=== PATIENT | female | born 1965 | race Caucasian/White ===

== ENCOUNTER 2017-04-13 13:51 | Emergency (ER) | payer BC ==
[~2017-04-13] VITALS: Ht 152.4 cm; Wt 93.5 kg
[~2017-04-13 13:51] MED LIST: DLN/100 PO; LEVO50TA6 PO; OXYC5TAB PO; TRIA37.5 PO
[2017-04-13 14:06] VITALS: TEMP 36.8; Ht 152.4 cm; Wt 93.5 kg
[2017-04-13] MEDS ORDERED: SODIUM CHLORIDE 0.9% 1000ML 1,000 ML IV STA (15:42)
[2017-04-13 15:54] LABS: BASO % 0.4 %; BASO ABS # 0.03 K/uL (0-0.2); COMPLETE YES; EOS % 1.5 %; HEMATOCRIT 40.3 % (37-47); IG% 0.1 %; LYMPH % 26.8 %; LYMPH ABS # 2.28 K/uL (1.2-3.4); MEAN CELL VOLUME 91.6 fL (80-100); MEAN PLATELET VOLUME 9.9 fL (7.4-10.4); MONO % 10.7 %; NEUT % 60.5 %; PLATELET COUNT 326 K/uL (130-400); WHITE BLOOD COUNT 8.52 K/uL (4.8-10.8)
[2017-04-13 16:03] LABS: PREG INTERNAL NEGATIVE QC NEG CLEAR BACKGROUND; PREG INTERNAL POSITIVE QC POS CONTROL LINE
[2017-04-13 16:06] LABS: URINE APPEARANCE CLEAR (CLEAR); URINE BILIRUBIN NEG (NEG); URINE COLOR YELLOW; URINE EPITHELIAL CELL AUTO 20-30 /lpf (0-5); URINE NITRITE NEG (NEG); URINE PH 6.5 (4.5-7.5); URINE SPECIFIC GRAVITY 1.013 (1.000-1.030); UROBILINOGEN NEG (NEG); ZZUR CULT IF INDIC CLEAN CATCH NO
[2017-04-13 16:10] LABS: MANUAL MICROSCOPIC REQUIRED? NO; REVIEW REQ? NO
[2017-04-13 16:12] LABS: ALT/SGPT 26 U/L (12-78); AST/SGOT 16 U/L (15-37); BLOOD UREA NITROGEN 11 mg/dl (7-18); BUN/CREATININE RATIO 15.3 (10-20); CALCIUM 8.7 mg/dl (8.5-10.1); CARBON DIOXIDE 28 mmol/L (21-32); CHLORIDE 100 mmol/L (98-107); CREATININE 0.73 mg/dl (0.60-1.20); GLUCOSE 83 mg/dl (70-99); POTASSIUM 3.2 mmol/L (3.5-5.1); SODIUM 137 mmol/L (136-145)
[2017-04-13 16:15] LABS: ALKALINE PHOSPHATASE 88 U/L (45-117)
--- NOTE | 2017-04-13 18:12 | DIAGNOSTIC IMAGING REPORT ---
Venous Doppler right leg RIGHT VENOUS DOPP LOWER EXT UNILAT CLINICAL HISTORY: LR/QR hip/thigh pain Right TECHNIQUE: Venous Doppler COMPARISON STUDY: None FINDINGS: Normal study IMPRESSION: Normal study Electronically signed by: Mo Antonio M.D. 04/13/2017 6:11 PM Dictated Date/Time: 04/13/2017 6:11 PM
--- NOTE | 2017-04-13 18:13 | DIAGNOSTIC IMAGING REPORT ---
APPENDIX ULTRASOUND HISTORY: Right lower quadrant pain LR/QR hip/thigh pain COMPARISON: None. FINDINGS: Transabdominal scanning of the right lower quadrant was performed. The appendix was not identified. There are no fluid collections or masses within the right lower quadrant. IMPRESSION: The appendix was not identified. Electronically signed by: Mo Antonio M.D. 04/13/2017 6:12 PM Dictated Date/Time: 04/13/2017 6:12 PM
--- NOTE | 2017-04-13 18:18 | DIAGNOSTIC IMAGING REPORT ---
EXAMINATION: PELVIC ULTRASOUND CLINICAL HISTORY: LR/QR hip/thigh pain COMPARISON STUDY: None FINDINGS: The uterus measured 11.2 cm maximum dimension. Several uterine fibroids the largest of which measures 5 cm at the level of the mid uterine body.. The endometrial stripe measured moderately thickened at 1.2 cm.. Probable central canal polyp measuring 1.4 cm. The right ovary measured 2.8 cm maximum dimension. Normal vascular flow. 1.2 cm follicular cyst. The left ovary measured 2.5 cm with a 5.5 cm cyst.. There is no ultrasonographic evidence of ovarian torsion. It should be noted that ovarian torsion can be present with normal Doppler ultrasonographic findings. There was no evidence of pathologic free pelvic fluid. IMPRESSION: 1. . 5.5 cm left ovarian cyst. 2. Moderate thickening of the endometrium at 1.2 cm with a 1.4 cm central canal polyp. 3. Small right ovarian cyst. 4. Fibroid-type uterus. Electronically signed by: Mo Antonio M.D. 04/13/2017 6:17 PM Dictated Date/Time: 04/13/2017 6:13 PM
--- NOTE | 2017-04-13 19:32 | DIAGNOSTIC IMAGING REPORT ---
LUMBAR SPINE 5 VIEWS HISTORY: Pain Eval lumbar DDD COMPARISON: None. FINDINGS: There is no fracture. No subluxation. Moderate degenerative disc change from L3 through S1. IMPRESSION: Moderate degenerative changes low lumbar spine. Electronically signed by: Mo Antonio M.D. 04/13/2017 7:30 PM Dictated Date/Time: 04/13/2017 7:29 PM
--- NOTE | 2017-04-13 19:32 | DIAGNOSTIC IMAGING REPORT ---
RIGHT HIP UNILATERAL 2 VIEWS CLINICAL HISTORY: R hip pain Right pain COMPARISON: None. DISCUSSION: Minimal degenerative narrowing right hip joint space. Minimal calcific trochanteric bursitis. No evidence for acetabular protrusion. There is no evidence for soft tissue swelling. IMPRESSION: Minimal degenerative change. No acute bony abnormality. Electronically signed by: Mo Antonio M.D. 04/13/2017 7:31 PM Dictated Date/Time: 04/13/2017 7:30 PM
[2017-04-13 20:00] VITALS: BP 131/81; PULSE 76; O2SAT 97
--- NOTE | 2017-04-13 20:07 | EMERGENCY ROOM VISIT NOTE ---
History First contact with patient: 14:59 Chief Complaint: GROIN PAIN Stated Complaint: PAIN RT SIDE AND DOWN LEG History of Present Illness The patient is a 51 year old female who presents to the Emergency Room with complaints of right lower abdomen, groin and thigh pain. The patient reports that she started to notice discomfort one week ago. She was doing some spring time maintenance and gardening around her house when she started to notice the discomfort. Over the past 3 days, the pain has significantly worsened. She reports that the pain is worse in the morning, then improves by afternoon. Weightbearing seems to improve the pain. He has had no lower back pain or buttock pain. She does complain of pain radiating down the lateral aspect of the thigh to the knee. She denies any bladder or bowel difficulties. She denies any history of chronic back pain or back injuries. She does have a history of ovarian cyst. She is status post cholecystectomy. The patient reports that the pain has caused some nausea. She denies any fevers or chills at home. She rates her discomfort a 7 out of 10. Last menstruation was approximately one week ago. The patient denies . Review of Systems HEENT: Denies dizziness, visual problems, hearing loss, tinnitus. Denies difficulty swallowing or oral lesions. PULMONARY: Denies cough, shortness of breath, sputum production or hemoptysis. CARDIOVASCULAR: Denies chest pain, palpitations, dyspnea on exertion, orthopnea or peripheral edema. GASTROINTESTINAL: Denies diarrhea, constipation or vomiting. Otherwise see history of present illness. GENITOURINARY: Denies dysuria, frequency, urgency or nocturia. NEUROLOGIC: Denies history of epilepsy, CVA, TIA or chronic headaches. MUSCULOSKELETAL: Denies history of joint tenderness/swelling. SKIN: Denies rashes or lesions. PSYCHIATRIC: Denies history of depression or mental illness. ENDOCRINE: Denies history of diabetes or thyroid disorders. Past Medical/Surgical History Medical Problems: (1) Acute cholecystitis Family History Unremarkable Social History Smoking Status: Never Smoker Drug Use: none Marital Status: Housing Status: lives with family Current/Historical Medications Scheduled Levothyroxine Sodium (Levothyroxine Sodium), 50 MCG PO DAILY Phenytoin Sodium (Dilantin), 100 MG PO BID Triamterene/Hctz (Dyazide 37.5MG/25MG), 1 TAB PO DAILY Allergies Coded Allergies: No Known Allergies (Unverified , 03/27/16) Physical Exam Vital Signs Date Time Temp Pulse Resp B/P (MAP) Pulse Ox O2 Delivery O2 Flow Rate FiO2 04/13/17 20:00 76 18 131/81 97 04/13/17 18:08 81 18 135/89 99 Room Air 04/13/17 15:53 81 16 150/98 97 04/13/17 14:06 36.8 89 18 164/97 100 Room Air Physical Exam CONSTITUTIONAL: Morbidly obese female, alert and oriented X 3 with positive affect. She does not appear in any acute distress. HEENT: Normocephalic, atraumatic. Pupils equal, round and reactive. No scleral icterus or conjunctival injection. NECK: Full active range of motion without discomfort. RESPIRATORY: Clear to auscultation bilaterally with no wheezing, crackles, rhonchi or stridor. CARDIOVASCULAR: Regular rate and rhythm with no murmurs, rubs or gallops. GASTROINTESTINAL: Bowel sounds present in all quadrants. The patient has right lower quadrant tenderness to palpation with negative Rovsing sign. Negative rebound or guarding. MUSCULOSKELETAL: Full range of motion of all joints without discomfort. Patient has worsening discomfort with full internal rotation of the hip. Negative straight leg raise. No focal tenderness to palpation through the lumbar paraspinous muscles, SI joints or sciatic notch. No tenderness to palpation across the lateral thigh. Pedal pulses are intact. INTEGUMENTARY: No rash or other significant dermatologic conditions noted. HEMATOLOGIC: No ecchymosis or petechiae. NEUROLOGIC: No focal neurologic deficits noted. Deep tendon reflexes 2+ and symmetric bilaterally. Medical Decision & Procedures ER Provider Diagnostic Interpretation: Pelvic and transvaginal ultrasound shows a fibroid uterus and bilateral ovarian cysts with a larger left ovarian cyst. There is no evidence for torsion. Additional endometrial thickening is noted. Radiologist report is as follows: EXAMINATION: PELVIC ULTRASOUND CLINICAL HISTORY: LR/QR hip/thigh pain COMPARISON STUDY: None FINDINGS: The uterus measured 11.2 cm maximum dimension. Several uterine fibroids the largest of which measures 5 cm at the level of the mid uterine body.. The endometrial stripe measured moderately thickened at 1.2 cm.. Probable central canal polyp measuring 1.4 cm. The right ovary measured 2.8 cm maximum dimension. Normal vascular flow. 1.2 cm follicular cyst. The left ovary measured 2.5 cm with a 5.5 cm cyst.. There is no ultrasonographic evidence of ovarian torsion. It should be noted that ovarian torsion can be present with normal Doppler ultrasonographic findings. There was no evidence of pathologic free pelvic fluid. IMPRESSION: 1. . 5.5 cm left ovarian cyst. 2. Moderate thickening of the endometrium at 1.2 cm with a 1.4 cm central canal polyp. 3. Small right ovarian cyst. 4. Fibroid-type uterus. Ultrasound of the appendix was unable to identify the appendix. Venous ultrasound of the right lower extremity is negative for deep vein thrombosis. My interpretation of lumbar spine and right hip x-ray shows mild degenerative changes of the hip, and moderate degenerative changes of most of the lumbar spine and L5-S1. Radiologist reports were also reviewed with concurrence. Laboratory Results 04/13/17 15:45 Red Blood Count 4.40, Mean Corpuscular Volume 91.6, Mean Corpuscular Hemoglobin 32.0, Mean Corpuscular Hemoglobin Concent 35.0, Mean Platelet Volume 9.9, Neutrophils (%) (Auto) 60.5, Lymphocytes (%) (Auto) 26.8, Monocytes (%) (Auto) 10.7, Eosinophils (%) (Auto) 1.5, Basophils (%) (Auto) 0.4, Neutrophils # (Auto ) 5.16, Lymphocytes # (Auto) 2.28, Monocytes # (Auto) 0.91, Eosinophils # (Auto ) 0.13, Basophils # (Auto) 0.03 04/13/17 15:45 Test 04/13/17 15:20 04/13/17 15:45 Urine Color YELLOW Urine Appearance CLEAR (CLEAR) Urine pH 6.5 (4.5-7.5) Urine Specific [place] 1.013 (1.000-1.030) Urine Protein NEG (NEG) Urine Glucose (UA) NEG (NEG) Urine Ketones NEG (NEG) Urine Occult Blood NEG (NEG) Urine Nitrite NEG (NEG) Urine Bilirubin NEG (NEG) Urine Urobilinogen NEG (NEG) Urine Leukocyte Esterase TRACE (NEG) Urine WBC (Auto) 1-5 /hpf (0-5) Urine RBC (Auto) 0-4 /hpf (0-4) Urine Hyaline Casts (Auto) 0 /lpf (0-5) Urine Epithelial Cells (Auto) 20-30 /lpf (0-5) Urine Bacteria (Auto) NEG (NEG) Urine Test NEG (NEG) White Blood Count 8.52 K/uL (4.8-10.8) Red Blood Count 4.40 M/uL (4.2-5.4) Hemoglobin 14.1 g/dL (12.0-16.0) Hematocrit 40.3 % (37-47) Mean Corpuscular Volume 91.6 fL (80-100) Mean Corpuscular Hemoglobin 32.0 pg (25-34) Mean Corpuscular Hemoglobin Concent 35.0 g/dl (32-36) Platelet Count 326 K/uL (130-400) Mean Platelet Volume 9.9 fL (7.4-10.4) Neutrophils (%) (Auto) 60.5 % Lymphocytes (%) (Auto) 26.8 % Monocytes (%) (Auto) 10.7 % Eosinophils (%) (Auto) 1.5 % Basophils (%) (Auto) 0.4 % Neutrophils # (Auto) 5.16 K/uL (1.4-6.5) Lymphocytes # (Auto) 2.28 K/uL (1.2-3.4) Monocytes # (Auto) 0.91 K/uL (0.11-0.59) Eosinophils # (Auto) 0.13 K/uL (0-0.5) Basophils # (Auto) 0.03 K/uL (0-0.2) RDW Standard Deviation 40.5 fL (36.4-46.3) RDW Coefficient of Variation 12.0 % (11.5-14.5) Immature Granulocyte % (Auto) 0.1 % Immature Granulocyte # (Auto) 0.01 K/uL (0.00-0.02) Anion Gap 9.0 mmol/L (3-11) Est Creatinine Clear Calc Drug Dose 93.1 ml/min Estimated GFR () 110.5 Estimated GFR (Non- 95.4 BUN/Creatinine Ratio 15.3 (10-20) Calcium Level 8.7 mg/dl (8.5-10.1) Total Bilirubin 0.3 mg/dl (0.2-1) Direct Bilirubin < 0.1 mg/dl (0-0.2) Aspartate Amino Transf (AST/SGOT) 16 U/L (15-37) Alanine Aminotransferase (ALT/SGPT) 26 U/L (12-78) Alkaline Phosphatase 88 U/L (45-117) Total Protein 8.0 gm/dl (6.4-8.2) Albumin 4.1 gm/dl (3.4-5.0) Lipase 137 U/L (73-393) The above labs were reviewed and were grossly normal. Medications Administered Medications (Trade) Dose Ordered Sig/Dada Route Start Time Stop Time Status Last Admin Dose Admin Sodium Chloride 1,000 ml @ 999 mls/hr Q1H1M STAT IV 04/13/17 15:42 04/13/17 16:42 DC 04/13/17 15:51 999 MLS/HR ED Course Patient history and physical exam were performed. Nurse's notes were reviewed. Vital signs were reviewed, showing an elevated blood pressure 164/97. Otherwise remaining vital signs are normal. IV access was established, and labs were drawn. The patient was hydrated with a liter normal saline. She refused any analgesics or antiemetics. Review of labs shows no significant abnormality's. Urinalysis was normal, and urine negative. Appendix ultrasound was unable to identify the appendix. Venous ultrasound of the right lower extremity was negative for deep vein thrombosis. Pelvic and transvaginal ultrasound shows a fibroid uterus, thickened endometrium and left greater than right ovarian cyst. X-rays of the lumbar spine and right hip shows degenerative changes without any acute fractures or other acute findings. The patient was advised of her laboratory and imaging studies. The patient reports that she has an appointment scheduled tomorrow with her family doctor. She was encouraged to alternate ibuprofen and Tylenol as needed for pain. She was welcome to return to the emergency department for any progressively worsening pain, fever or other concerning symptoms. The patient was happy with plan of care, voiced understanding of all discharge instructions, and denied any significant pain at the conclusion of my exam. Medical Decision Differentials considered included acute appendicitis, hernia, bowel obstruction , diverticulitis, musculoskeletal etiology, ileotibial band syndrome, UTI, vaginitis, PID, Bartholin's cyst, lumbar radiculopathy, osteoarthritis and the vein thrombosis. Her workup today is otherwise unremarkable and not suggestive of any specific etiology. I do however suspect that this is musculoskeletal etiology, probably lumbar radiculitis given the distribution of her pain. Impression Primary Impression: Right lower quadrant abdominal pain Additional Impression: Right hip pain Departure Information Referrals Cuauhtemoc Davidson M.D. (PCP) Patient Instructions My [facility] Problem Qualifiers
[2017-07-19] MEDS ORDERED: LEVO75TA PO (10:57)
[2017-08-09] MEDS ORDERED: POTA20TA16 PO (11:57)
== END 2017-04-13 20:01 | disposition home or self-care (01) ==
LOC: C.EDB 13:52 → C.EDC 20:01
DX: R10.31 Right lower quadrant pain (principal); M25.551 Pain in right hip; Z79.899 Other long term (current) drug therapy

== ENCOUNTER → 2017-05-11 | Outpatient (CLI) | payer BC ==
[~2017-05-11] MED LIST changes: +CEFT1INJ57 IV; +LEVO75TA PO; -OXYC5TAB PO; +POTA20TA16 PO
[2017-05-11 12:23] LABS: BASO % 0.5 %; BASO ABS # 0.03 K/uL (0-0.2); COMPLETE YES; EOS % 1.5 %; HEMATOCRIT 39.3 % (37-47); IG% 0.2 %; LYMPH % 35.8 %; LYMPH ABS # 2.13 K/uL (1.2-3.4); MEAN CORPUSCULAR HEMOGLOBIN 32.1 pg (25-34); MEAN CORPUSCULAR HGB CONC 34.1 g/dl (32-36); MEAN PLATELET VOLUME 10.6 fL (7.4-10.4); MONO % 10.6 %; NEUT % 51.4 %; PLATELET COUNT 304 K/uL (130-400); RED BLOOD COUNT 4.18 M/uL (4.2-5.4); WHITE BLOOD COUNT 5.95 K/uL (4.8-10.8)
[2017-05-11 12:51] LABS: ALT/SGPT 30 U/L (12-78); BLOOD UREA NITROGEN 9 mg/dl (7-18); BUN/CREATININE RATIO 12.7 (10-20); CALCIUM 8.8 mg/dl (8.5-10.1); CARBON DIOXIDE 26 mmol/L (21-32); CHLORIDE 103 mmol/L (98-107); CHOLESTEROL 212 mg/dl (0-200); CREATININE 0.74 mg/dl (0.60-1.20); GLUCOSE 84 mg/dl (70-99); POTASSIUM 3.6 mmol/L (3.5-5.1); SODIUM 136 mmol/L (136-145)
[2017-05-11 13:00] LABS: ALKALINE PHOSPHATASE 76 U/L (45-117); AST/SGOT 23 U/L (15-37); CHOLESTEROL/HDL RATIO 4.5; HDL CHOLESTEROL 47 mg/dl; LDL CHOLESTEROL CALCULATED 132 mg/dl; TRIGLYCERIDES 167 mg/dl (0-150); VERY LOW DENSITY LIPOPROT CALC 33 mg/dl
== END | disposition home or self-care (01) ==
LOC: C.LABBFT 10:12
PROVIDERS: ATTEND Physician Assistant Medical
DX: G40.909 Epilepsy, unspecified, not intractable, without status epilepticus (principal)

== ENCOUNTER → 2017-05-18 | Outpatient (CLI) | payer BC ==
--- NOTE | 2017-05-18 09:46 | DIAGNOSTIC IMAGING REPORT ---
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 The left lobe measures 50 x 20 x 24 mm. Both lobes are heterogeneous in echotexture. There is a 4 mm cystic nodule within the isthmus. There is a 10 x 9 x 8 mm nodule abutting or arising from the lower pole the left lobe of the thyroid. This is isoechoic to thyroid tissue. This remains essentially unchanged from the preceding study. IMPRESSION: 1. No significant change from the preceding 2012 and 2008 study 2. Stable thyroid gland heterogeneity 3. Stable 4 mm cystic nodule within the isthmus 4. Stable 1 cm nodule arising from or adjacent to the lower pole the left lobe of the thyroid Electronically signed by: Savage Bob M.D. 05/18/2017 9:45 AM Dictated Date/Time: 05/18/2017 9:41 AM
== END | disposition home or self-care (01) ==
LOC: C.ULTR 08:47
PROVIDERS: ATTEND Internal Medicine
DX: E04.1 Nontoxic single thyroid nodule (principal)

== ENCOUNTER → 2017-07-31 | Outpatient (CLI) | payer BC ==
[~2017-07-31] MED LIST changes: -LEVO50TA6 PO
[2017-07-31 18:05] LABS: THYROID STIMULATING HORMONE 2.4 uIu/ml (0.300-4.500)
== END | disposition home or self-care (01) ==
LOC: C.LAB1850 17:03
PROVIDERS: ATTEND Obstetrics & Gynecology
DX: Z01.818 Encounter for other preprocedural examination (principal); E03.9 Hypothyroidism, unspecified

== ENCOUNTER → 2017-08-07 | Outpatient (CLI) | payer BC ==
[~2017-08-07] MED LIST changes: -CEFT1INJ57 IV
[2017-08-07 17:08] LABS: BLOOD UREA NITROGEN 8 mg/dl (7-18); BUN/CREATININE RATIO 11.1 (10-20); CALCIUM 9.1 mg/dl (8.5-10.1); CARBON DIOXIDE 28 mmol/L (21-32); CHLORIDE 101 mmol/L (98-107); CREATININE 0.76 mg/dl (0.60-1.20); GLUCOSE 107 mg/dl (70-99); POTASSIUM 3.1 mmol/L (3.5-5.1); SODIUM 136 mmol/L (136-145)
== END | disposition home or self-care (01) ==
LOC: C.LAB1850 15:35
PROVIDERS: ATTEND Physician Assistant Medical
DX: E87.6 Hypokalemia (principal)

== ENCOUNTER → 2017-08-08 | Outpatient (CLI) | payer BC ==
--- NOTE | 2017-08-09 08:12 | MAMMOGRAPHY REPORT ---
BILATERAL DIGITAL SCREENING MAMMOGRAM TOMOSYNTHESIS WITH CAD: 08/08/2017 CLINICAL HISTORY: Routine screening. Patient has no complaints. TECHNIQUE: Breast tomosynthesis in addition to standard 2D mammography was performed. Current study was also evaluated with a Computer Aided Detection (CAD) system. COMPARISON: Comparison is made to exams dated: 08/03/2016 mammogram, 04/28/2015 mammogram, 02/05/2014 ma mmogram, 10/20/2010 ultrasound, 10/20/2010 mammogram, and 10/06/2010 mammogram - [facility]. BREAST COMPOSITION: There are scattered areas of fibroglandular density in both breasts. FINDINGS: No suspicious mass, architectural distortion or cluster of microcalcifications is seen. IMPRESSION: ACR BI-RADS CATEGORY 1: NEGATIVE There is no mammographic evidence of malignancy. A 1 year screening mammogram is recommended. The pa tient will receive written notification of the results. Approximately 10% of breast cancers are not detected with mammography. A negative mammographic report should not delay biopsy if a clinically suggestive mass is present. Caridad huff/kody:08/08/2017 18:18:04 Cleaning Custodian: Mery Mello RT(R)(M), [facility] letter sent: Normal 1/2 BI-RADS Code: ACR BI-RADS Category 1: Negative
== END | disposition home or self-care (01) ==
LOC: C.MAMM 07:43
PROVIDERS: ATTEND Internal Medicine
DX: Z12.31 Encounter for screening mammogram for malignant neoplasm of breast (principal)

== ENCOUNTER → 2017-08-09 | Day surgery (SDC) | payer BC ==
[2017-07-19 10:58] VITALS: Ht 152.4 cm; Wt 93.2 kg
--- NOTE | 2017-08-04 08:19 | HISTORY & PHYSICAL EXAMINATION ---
DATE OF ADMISSION: 08/09/2017 The patient is for surgery on 08/09/2017. CHIEF COMPLAINT: Endometrial mass and menorrhagia. HISTORY OF PRESENT ILLNESS: The patient is a 51-year-old white female 2, para 2 who has been experiencing heavy menstrual bleeding for many months. Ultrasound and hysterosonogram the fall revealed evidence of an endometrial mass. The patient is now for hysteroscopy, D&C. Due to her heavy bleeding she also wishes to undergo endometrial ablation. She is status post tubal. Her last Pap smear was 07/29/2016 and this was negative. PAST MEDICAL HISTORY: ALLERGIES: The patient reports no known allergies. MEDICATIONS: She takes levothyroxine 75 mcg daily, Dilantin 100 mg 1 capsule b.i.d. and triamterene/hydrochlorothiazide 37.5/25 mg once daily. In addition, she is using hydrocortisone rectal suppositories for hemorrhoids. ILLNESSES: Hypertension. She is hypothyroid. She has a seizure disorder. Also noted to have ovarian cysts on her last pelvic ultrasound. The patient has had heartburn. PAST SURGICAL HISTORY: The patient is status post laparoscopic cholecystectomy. In addition, she has had a tubal ligation. She has also undergone thyroid biopsy which was negative. FAMILY HISTORY: There is a history of hypertension, diabetes, and heart disease in her mother. Her mother also suffered from a stroke. Her father has history of alcoholic cirrhosis. SOCIAL HISTORY: The patient drinks approximately 1 drink per week. She is not a current cigarette smoker but has smoked in the past. She is . PHYSICAL EXAMINATION: VITAL SIGNS: Height 5 feet, weight 206 pounds, blood pressure 128/86. HEAD, EYES, EARS, NOSE, AND THROAT: Grossly within normal limits. NECK: Supple without masses. CHEST: Her lungs are clear without wheezing. HEART: Regular rate and rhythm. No murmurs, gallops or rubs. BREASTS: Nontender with no masses palpable and no lymphadenopathy. ABDOMEN: Obese, soft and nontender. No masses palpable. PELVIC EXAMINATION: External genitalia are normal. Vagina is pink and stimulated. Cervix pink and closed with no lesions visible. Uterus is top normal size. Adnexa nontender with no masses palpable. Rectovaginal exam negative. EXTREMITIES: No cyanosis, clubbing or edema. IMPRESSION: A 51-year-old white female 2, para 2 with menorrhagia and an endometrial mass by ultrasound. PLAN: The patient is for hysteroscopy, dilation of the cervix and curettage with possible removal of polyp/lesion as well as hysteroscopic guided endometrial ablation by roller ball or NovaSure method with or without dilation and curettage, with or without removal of endometrial polyp/lesion. The patient is aware of the risks of bleeding, infection, perforation of the uterus, damage to internal organs and possible need for further treatment. The patient wishes to proceed with the surgery. YARITZA
[~2017-08-09] VITALS: Ht 152.4 cm; Wt 93.2 kg
[~2017-08-09] MED LIST changes: +ATROPINE SULFATE 0.1 MG/ML 5ML SYR IV PRN; +CEFT1INJ57 IV; +DEXAMETHASONE SOD INJ 4 MG/ML VIAL ONE; +EpHEDrine SULFATE INJ 50 MG/ML AMP IV PRN; +FENTANYL CITRATE INJ 50 MCG/1 ML 2 ML VIAL IV PRN; +FENTANYL CITRATE INJ 50 MCG/1 ML 2 ML VIAL ONE; +FLUMAZENIL 0.1 MG/1 ML 10 ML VIAL IV PRN; +HYDROmorphone INJ 2 MG/ML SYR/VIAL IV PRN; +IBUPROFEN 200 MG TAB ONE; +IBUPROFEN 600 MG TAB PO PRN; +KETOROLAC TROMETHAMINE 30 MG/ML VIAL ONE; +LABETALOL HCL IV 5 MG/ML 20ML IV PRN; +LACTATED RINGER'S 1000ML 1,000 ML IV SCH; +LIDOCAINE HCL 2% 2 ML VIAL (20MG/ML) ONE; +MEPERIDINE HCL 25 MG/ML CARP IV PRN; +MIDAZOLAM HCL 1 MG/ML 2ML VIAL ONE; +NALOXONE HCL 0.4 MG/1 ML VIAL/CARP IV PRN; +ONDANSETRON INJ 2 MG/ML 2 ML VIAL IV PRN; +ONDANSETRON INJ 2 MG/ML 2 ML VIAL ONE; +PHENYLEPHRINE 100MCG/ML 5ML SYR IV PRN; +PROPOFOL IV EMULSION 10 MG/ML 20 ML VIAL IV ONE; +SODIUM CHLORIDE 0.9% 1000ML 1,000 ML IV SCH
--- NOTE | 2017-08-09 15:10 | History & Physical Bridge - SC ---
H&P Re-Evaluation Bridge Note: I have examined the patient, reviewed the History & Physical and in the interval since the performance of the History & Physical I have noted the following changes of clinical significance: No changes noted
--- NOTE | 2017-08-09 15:11 | [facility] Post Operative Brief Note ---
Immediate Operative Summary Operative Date Aug 09, 2017. Pre-Operative Diagnosis Endometrial Mass Post-Operative Diagnosis Same with cervical polyps. Pathology pending. Procedure(s) Performed Dilatation And Curettage, Hysteroscopy, Polypectomy, Novasure Endometrial Ablation Surgeon Dr. Demetrice Staley Windows Security Analyst Surgeon(s) 0 Estimated Blood Loss 10cc Findings See dictated note. Specimens A. Endocervical Curettings and Cervical Polyp B. Endometrial Curettings and Polyp Complication(s) None Disposition Recovery Room / PACU
--- NOTE | 2017-08-09 15:16 | Discharge Instructions-SurgCtr ---
Discharge Instructions Date of Service Aug 09, 2017. Visit Reason for Visit: Endometrial Mass, menorrhagia Discharge Discharge Diagnosis / Problem: S/P Hysteroscopy, D&C, polypectomy and Novasure endometrial ablation Discharge Goals Goal(s): Diagnostic testing, Therapeutic intervention Activity Recommendations Activity Limitations: per Instructions/Follow-up section Anesthesia . Post Anesthesia Instructions: If you have had General Anesthesia or IV Sedation: * Do not drive today. * Resume driving when surgeon permits. * Do not make important decisions or sign legal documents today. * Call surgeon for: 1. Temperature elevations greater than 101 degrees F. 2. Uncontrollable pain. 3. Excessive bleeding. 4. Persistent nausea and vomiting. 5. Medication intolerance (nausea, vomiting or rash). * For nausea and vomiting use only clear liquids such as: tea, soda, bouillon until nausea subsides, then gradually increase diet as tolerated. * If you have any concerns or questions, call your surgeon's office. If physician is unavailable and it is an emergency, call 911 or go to the nearest emergency room. . Instructions / Follow-Up Instructions / Follow-Up ACTIVITY RECOMMENDATIONS: * Avoid tampons, douching, hot tubs, pools, and intercourse until bleeding has stopped. * May shower as usual. * No strenuous activity for 24-48 hours. After 24-48 hours, you may do anything you feel like doing (driving and sports are okay). SPECIAL CARE INSTRUCTIONS: Special Diet: * Mild nausea may occur in the immediate post-operative period. * Take clear liquids such as tea, cola or bouillon until all nausea has subsided; you may then resume your normal diet. Special Care: * Light bleeding and vaginal spotting can last from a few days to 3-4 weeks. Call your doctor if bleeding becomes heavier than the heaviest part of your period. * Check your temperature twice a day for one week. If it goes above 100.4 degrees Fahrenheit (38.0 Celsius), notify your doctor. Call if you have persistent severe cramping or foul vaginal discharge. * Call your doctor's office for an appointment for 3-4 weeks after your surgery. [phone] FOLLOW-UP VISIT: Call your doctor's office for an appointment for 3-4 weeks after your surgery. Diet Recommendations Home Diet: resume previous diet Procedures Procedures Performed: Dilatation And Curettage, Hysteroscopy, Polypectomy, Novasure Endometrial Ablation Pending Studies Studies pending at discharge: yes List of pending studies: The sonography technologist office will call you with the pathology report. Medical Emergencies . Who to Call and When: Medical Emergencies: If at any time you feel your situation is an emergency, please call 911 immediately. . Non-Emergent Contact Non-Emergency issues call your: Hot Tar Roofer Helper Call Non-Emergent contact if: temperature is above 100.5, your pain is worsening . . "Provider Documentation" section prepared by Mamta Staley. .
[2017-08-09 15:43] VITALS: TEMP 36.4
--- NOTE | 2017-08-09 15:43 | OPERATIVE REPORT ---
DATE OF OPERATION: 08/09/2017 PREOPERATIVE DIAGNOSES: Endometrial mass and menorrhagia. POSTOPERATIVE DIAGNOSES: Same with pathology pending. PROCEDURES: Hysteroscopy, D&C, polypectomy and NovaSure endometrial ablation. SURGEON: Dr. Mamta Staley. ANESTHESIA: General. STATION CHIEF: Dr. Lui. DESCRIPTION OF PROCEDURE: The patient was taken to the operating room, where general anesthesia was administered. After an adequate level was obtained, she was placed in dorsal lithotomy position. Vulva, vagina, and cervix were prepped with Betadine solution. The patient was draped. Bladder was drained with a straight catheter. Weighted speculum was placed in the posterior fornix of the vagina. The anterior lip of the cervix was grasped with an Allis clamp. There were 2 small polypoid appearing lesions right at the cervical os. These were removed with an Allis clamp and sent with the endocervical curettings. Endocervical curettings were obtained with a small rectangular curette. The uterus was then sounded to 9.5 cm. The cervix was easily dilated up to a #25. Hysteroscope was introduced into the endometrial cavity and photographs taken. There were several polypoid growths noted. The hysteroscope was removed and polyp forceps used to remove a moderate amount of tissue. Curettage was then carried out with a serrated curet and good uterine cry was obtained in all 4 quadrants. The hysteroscope was used to examine the endometrial cavity and at this point, it appeared clear of any further polypoid tissue. The endometrial cavity was estimated to be 4.5 cm in depth. The NovaSure instrument was introduced into the endometrial cavity. The depth was set at 4.5 cm. The endometrial cavity width was 4.7 cm. The CO2 test was performed and this was passed. The NovaSure was activated and active for 1 minute 13 seconds. The NovaSure instrument was then removed. Hysteroscope was used once more to visualize the endometrial cavity and good pili was noted. The patient tolerated the procedure well and was taken to the recovery room in good condition. I attest to the content of the Intraoperative Record and any orders documented therein. Any exceptions are noted below. MTDD
--- NOTE | 2017-08-09 15:46 | Anesthesia Progress Nt - [facility] ---
Anesthesia Post Op Note Date & Time Aug 09, 2017 at 15:46 Vital Signs Pain Intensity: 0 Vital Signs Past 12 Hours Date Time Temp Pulse Resp B/P (MAP) Pulse Ox O2 Delivery O2 Flow Rate FiO2 08/09/17 15:41 134/90 08/09/17 15:40 36.5 95 Room Air 08/09/17 15:37 72 14 08/09/17 15:37 74 14 95 08/09/17 15:36 131/92 08/09/17 15:32 68 12 08/09/17 15:32 67 12 95 08/09/17 15:31 137/81 08/09/17 15:30 64 17 08/09/17 15:30 66 17 99 08/09/17 15:26 134/85 08/09/17 15:25 72 17 98 08/09/17 15:25 72 17 08/09/17 15:24 79 15 98 08/09/17 15:24 78 15 08/09/17 15:21 133/88 08/09/17 15:19 78 08/09/17 15:19 78 142/86 98 08/09/17 15:19 36.3 80 16 142/86 98 Mask 6 08/09/17 12:02 36.7 83 16 124/84 (97) 98 Room Air Notes Mental Status: alert / awake / arousable, participated in evaluation Pt Amnestic to Procedure: Yes Nausea / Vomiting: adequately controlled Pain: adequately controlled Airway Patency, RR, SpO2: stable & adequate BP & HR: stable & adequate Hydration State: stable & adequate Anesthetic Complications: no major complications apparent
[2017-08-09 16:06] VITALS: BP 130/82; PULSE 71; O2SAT 98
== END | disposition home or self-care (01) ==
LOC: X.SURG 11:36
PROVIDERS: ATTEND Obstetrics & Gynecology
DX: N92.0 Excessive and frequent menstruation with regular cycle (principal); N84.0 Polyp of corpus uteri; I10 Essential (primary) hypertension; E03.9 Hypothyroidism, unspecified; G40.909 Epilepsy, unspecified, not intractable, without status epilepticus; Z82.49 Family history of ischemic heart disease and other diseases of the circulatory system; E66.9 Obesity, unspecified; Z83.3 Family history of diabetes mellitus; Z82.3 Family history of stroke; Z81.1 Family history of alcohol abuse and dependence; Z87.891 Personal history of nicotine dependence; Z86.69 Personal history of other diseases of the nervous system and sense organs; Z90.49 Acquired absence of other specified parts of digestive tract; Z98.51 Tubal ligation status

== ENCOUNTER 2017-08-11 22:13 | Inpatient (IN) | payer BC ==
[~2017-08-11] VITALS: Ht 152.4 cm; Wt 92.4 kg
[~2017-08-11 22:13] MED LIST changes: -ATROPINE SULFATE 0.1 MG/ML 5ML SYR IV PRN; -CEFT1INJ57 IV; -DEXAMETHASONE SOD INJ 4 MG/ML VIAL ONE; -EpHEDrine SULFATE INJ 50 MG/ML AMP IV PRN; -FENTANYL CITRATE INJ 50 MCG/1 ML 2 ML VIAL IV PRN; -FENTANYL CITRATE INJ 50 MCG/1 ML 2 ML VIAL ONE; -FLUMAZENIL 0.1 MG/1 ML 10 ML VIAL IV PRN; -HYDROmorphone INJ 2 MG/ML SYR/VIAL IV PRN; -IBUPROFEN 200 MG TAB ONE; -IBUPROFEN 600 MG TAB PO PRN; -KETOROLAC TROMETHAMINE 30 MG/ML VIAL ONE; -LABETALOL HCL IV 5 MG/ML 20ML IV PRN; -LACTATED RINGER'S 1000ML 1,000 ML IV SCH; -LIDOCAINE HCL 2% 2 ML VIAL (20MG/ML) ONE; -MEPERIDINE HCL 25 MG/ML CARP IV PRN; -MIDAZOLAM HCL 1 MG/ML 2ML VIAL ONE; -NALOXONE HCL 0.4 MG/1 ML VIAL/CARP IV PRN; -ONDANSETRON INJ 2 MG/ML 2 ML VIAL IV PRN; -ONDANSETRON INJ 2 MG/ML 2 ML VIAL ONE; -PHENYLEPHRINE 100MCG/ML 5ML SYR IV PRN; -POTA20TA16 PO; -PROPOFOL IV EMULSION 10 MG/ML 20 ML VIAL IV ONE; -SODIUM CHLORIDE 0.9% 1000ML 1,000 ML IV SCH
[2017-08-11] MEDS ORDERED: ONDANSETRON INJ 2 MG/ML 2 ML VIAL IV STA (23:17)
[2017-08-11] MEDS ORDERED: KETOROLAC TROMETHAMINE 30 MG/ML VIAL IV STA (23:17)
[2017-08-11] MEDS ORDERED: SODIUM CHLORIDE 0.9% 1000ML 1,000 ML, SODIUM CHLORIDE 0.9% 1000ML 1,000 ML IV ONE (23:30)
[2017-08-11] MEDS ORDERED: ACETAMINOPHEN IV 100 ML IV ONE (23:30)
[2017-08-12 00:18] LABS: BASO % 0.2 %; BASO ABS # 0.01 K/uL (0-0.2); COMPLETE YES; HEMATOCRIT 34.4 % (37-47); IG% 0.2 %; LYMPH % 4.8 %; LYMPH ABS # 0.28 K/uL (1.2-3.4); MEAN CELL VOLUME 93.5 fL (80-100); MEAN CORPUSCULAR HEMOGLOBIN 32.3 pg (25-34); MEAN CORPUSCULAR HGB CONC 34.6 g/dl (32-36); MEAN PLATELET VOLUME 9.7 fL (7.4-10.4); MONO % 0.7 %; NEUT % 94.1 %; PLATELET COUNT 199 K/uL (130-400); RED BLOOD COUNT 3.68 M/uL (4.2-5.4)
[2017-08-12 00:30] LABS: URINE APPEARANCE CLEAR (CLEAR); URINE BILIRUBIN NEG (NEG); URINE COLOR YELLOW; URINE EPITHELIAL CELL AUTO >30 /lpf (0-5); URINE NITRITE NEG (NEG); URINE PH 7.5 (4.5-7.5); URINE SPECIFIC GRAVITY 1.019 (1.000-1.030); UROBILINOGEN NEG (NEG); ZZUR CULT IF INDIC CLEAN CATCH NO
[2017-08-12] MEDS ORDERED: PIPERACILLIN/TAZOBACTAM 4.5 GM/100ML D5W IV STA (00:34)
[2017-08-12 00:39] LABS: BUN/CREATININE RATIO 11.2 (10-20); CALCIUM 8.5 mg/dl (8.5-10.1); MAGNESIUM 1.7 mg/dl (1.8-2.4); POTASSIUM 3.4 mmol/L (3.5-5.1)
[2017-08-12 00:40] LABS: MANUAL MICROSCOPIC REQUIRED? NO; REVIEW REQ? NO
[2017-08-12] MEDS ORDERED: OPTIRAY 320 IV PRN (00:45)
[2017-08-12] MEDS ORDERED: SODIUM CHLORIDE 0.9% 1000ML 1,000 ML IV ONE (03:00)
[2017-08-12] MEDS ORDERED: VANCOMYCIN INJ 1,000 MG in SODIUM CHLORIDE 0.9% 250ML 250 ML IV STA (03:15)
[2017-08-12] MEDS ORDERED: VANCOMYCIN 1GM/270ML NSS ONE (03:37)
--- NOTE | 2017-08-12 03:44 | History and Physical ---
History & Physical Date & Time of Service: Aug 12, 2017 at 03:43 Chief Complaint: Surgery 08-09,Fever,Chills,Vomiting,Hot/Sweating Primary Care Physician: Cuauhtemoc Davidson M.D. History of Present Illness Source: patient Mrs Baez is a 51 year old female who presents to the ER with fever and chills. She underwent surgery on Past Medical/Surgical History Hypothyroidism Seizure disorder Family History Noncontributory Social History Smoking Status: Never Smoker Smokeless Tobacco Use: No Alcohol Use: none Drug Use: none Marital Status: Housing status: lives with family Occupational Status: retired Immunizations History of Influenza Vaccine: Unknown History of Tetanus Vaccine?: Unknown History of Pneumococcal: Unknown History of Hepatitis B Vaccine: Unknown Multi-Drug Resistant Organisms History of MDRO: No Allergies Coded Allergies: No Known Allergies (Unverified , 08/11/17) Home Medications Scheduled Levothyroxine Sodium (Synthroid), 75 MCG PO QAM Phenytoin Sodium (Dilantin), 100 MG PO BID Triamterene/Hctz (Dyazide 37.5MG/25MG), 1 TAB PO QAM Review of Systems Constitutional: + fever, + chills, + fatigue (generalized) Eyes: No worsening of vision ENT: No hearing loss Respiratory: + cough (just started in the ER), No sputum, No wheezing, No shortness of breath, No dyspnea on exertion, No dyspnea at rest, No hemoptysis Physical Exam Vital Signs Date Time Temp Pulse Resp B/P (MAP) Pulse Ox O2 Delivery O2 Flow Rate FiO2 08/12/17 03:06 37.4 08/12/17 01:49 37.9 111 16 112/53 Room Air 08/12/17 00:39 39.5 08/11/17 22:16 37.3 117 18 134/81 95 Room Air General Appearance: WD/WN, + mild distress (appears hot and sweating) Head: normocephalic, atraumatic Eyes: normal inspection, PERRL, EOMI ENT: + pertinent finding (no meningismus) Neck: supple, no JVD Respiratory/Chest: chest non-tender, lungs clear, normal breath sounds, no respiratory distress, no accessory muscle use Cardiovascular: normal peripheral pulses, + tachycardia (regular rhythm) Abdomen/GI: normal bowel sounds, non tender, soft Extremities/Musculoskelatal: no calf tenderness, normal capillary refill, no pedal edema Neurologic/Psych: media sales executive II-XII nml as tested, no motor/sensory deficits, alert, oriented x 3 Skin: normal color, warm/dry, no rash Diagnostics Laboratory Results Results Past 24 Hours Test 08/11/17 23:17 08/12/17 00:06 08/12/17 00:15 Range/Units Urine Color YELLOW Urine Appearance CLEAR CLEAR Urine pH 7.5 4.5-7.5 Urine Specific [place] 1.019 1.000-1.030 Urine Protein NEG NEG Urine Glucose (UA) NEG NEG Urine Ketones NEG NEG Urine Occult Blood TRACE NEG Urine Nitrite NEG NEG Urine Bilirubin NEG NEG Urine Urobilinogen NEG NEG Urine Leukocyte Esterase TRACE NEG Urine WBC (Auto) 1-5 0-5 /hpf Urine RBC (Auto) 5-10 0-4 /hpf Urine Hyaline Casts (Auto) 1-5 0-5 /lpf Urine Epithelial Cells (Auto) >30 0-5 /lpf Urine Bacteria (Auto) NEG NEG White Blood Count 5.80 4.8-10.8 K/uL Red Blood Count 3.68 4.2-5.4 M/uL Hemoglobin 11.9 12.0-16.0 g/dL Hematocrit 34.4 37-47 % Mean Corpuscular Volume 93.5 80-100 fL Mean Corpuscular Hemoglobin 32.3 25-34 pg Mean Corpuscular Hemoglobin Concent 34.6 32-36 g/dl Platelet Count 199 130-400 K/uL Mean Platelet Volume 9.7 7.4-10.4 fL Neutrophils (%) (Auto) 94.1 % Lymphocytes (%) (Auto) 4.8 % Monocytes (%) (Auto) 0.7 % Eosinophils (%) (Auto) 0.0 % Basophils (%) (Auto) 0.2 % Neutrophils # (Auto) 5.46 1.4-6.5 K/uL Lymphocytes # (Auto) 0.28 1.2-3.4 K/uL Monocytes # (Auto) 0.04 0.11-0.59 K/uL Eosinophils # (Auto) 0.00 0-0.5 K/uL Basophils # (Auto) 0.01 0-0.2 K/uL RDW Standard Deviation 42.0 36.4-46.3 fL RDW Coefficient of Variation 12.3 11.5-14.5 % Immature Granulocyte % (Auto) 0.2 % Immature Granulocyte # (Auto) 0.01 0.00-0.02 K/uL Sodium Level 135 136-145 mmol/L Potassium Level 3.4 3.5-5.1 mmol/L Chloride Level 99 98-107 mmol/L Carbon Dioxide Level 26 21-32 mmol/L Anion Gap 10.0 3-11 mmol/L Blood Urea Nitrogen 11 7-18 mg/dl Creatinine 1.00 0.60-1.20 mg/dl Est Creatinine Clear Calc Drug Dose 67.5 ml/min Estimated GFR () 75.5 Estimated GFR (Non- 65.2 BUN/Creatinine Ratio 11.2 10-20 Random Glucose 119 70-99 mg/dl Calcium Level 8.5 8.5-10.1 mg/dl Magnesium Level 1.7 1.8-2.4 mg/dl Total Bilirubin 0.4 0.2-1 mg/dl Aspartate Amino Transf (AST/SGOT) 20 15-37 U/L Alanine Aminotransferase (ALT/SGPT) 26 12-78 U/L Alkaline Phosphatase 86 45-117 U/L Total Protein 7.3 6.4-8.2 gm/dl Albumin 3.7 3.4-5.0 gm/dl Globulin 3.6 2.5-4.0 gm/dl Albumin/Globulin Ratio 1.0 0.9-2 Lipase 117 73-393 U/L Bedside Lactic Acid Venous 3.04 0.90-1.70 mmol/L Microbiology Results 08/12/17 Blood Culture, Received Pending 08/12/17 Blood Culture, Received Pending Diagnostic Radiology CT Abdomen/Pelvis with Contrast: Visualized lower thorax is unremarkable. Gallbladder is surgical absent. Calcified granulomata within the spleen. Liver, pancreas and adrenal glands are unremarkable. Kidneys, ureters and urinary bladder are unremarkable. Myomatous uteris. Right ovarian cyst measuring up to 6.6cm. Appendix is unremarkable. Stomach, small bowel and colon are all unremarkable. No acute osseus abnormality. Impression Assessment and Plan Mrs He is a 51 year old female who presents to the ER with fever and chills 2 days post op from D&C and ablation. Fever - unclear etiology but given history suspicion has to be highest for endometritis - blood culture pending - influenza swab added - treat with broad spectrum antibiotics, Zosyn + vancomycin - consult AGRICULTURAL EQUIPMENT MECHANIC Hypothyroidism - Continue levothyroxine Seizure disorder - continue phenytoin Attending Addendum: I have physically seen and examined this patient, have directed the resident's medical activities, and agree with the H&P as noted above with the following exceptions as noted. The patient is awake, alert and oriented 3, well-developed and well-nourished , normocephalic and atraumatic, lying in bed and in mild distress. HEENT--PERRL, EOMI, mucous membranes and oropharynx dry. Neck--supple, no JVD or bruits, thyroid normal, trachea midline, no adenopathy. Heart--normal S1 and S2, no extra beats, no murmurs, rubs or gallops. Lungs--clear bilaterally with good air movement, no respiratory distress, no accessory muscle use. Abdomen--normal bowel sounds and soft, tender over suprapubic and pelvic area bilaterally. Extremities--no cyanosis, clubbing or edema. There are good distal pulses b/l. Dermatologic--normal skin turgor, normal color, warm and dry, no abnormal lymph nodes, no rash. Neurologic--cranial nerves II through XII grossly intact. Rheumatologic--normal range of motion, nontender, muscles and joints. Psychiatric--normal affect. Assessment and Plan: Febrile illness/status post D&C with ablation 2 days previously-- Follow blood and urine cultures. Influenza swab. Place on vancomycin IV and Zosyn IV. NSS with KCl 20 mEq at 100 mils per hour. Consult AGRICULTURAL EQUIPMENT MECHANIC. Hypertension-- Hold triamterene/HCTZ 37.5/25 daily. Hypothyroidism-- Continue levothyroxine sodium 75 g by mouth every morning. Seizure disorder-- Continue Dilantin 100 mg by mouth twice a day. Level of Care Med/Surg Advanced Directives Existing Advance Directive: No Existing Living Will: No Existing Power of Image Processing Engineer: No Resuscitation Status FULL RESUSCITATION VTE Prophylaxis VTE Risk Assessment Done? Y/N: Yes Risk Level: Low Given or contraindicated: Treatment not indicated (young age and mobile, expect quick turn around) Social Service Consult None Apply Resident Tracking Resident Involvement: Resident Care Provided Care Provided: Adult [facility] Medicine
[2017-08-12] MEDS ORDERED: ONDANSETRON INJ 2 MG/ML 2 ML VIAL IV PRN (03:45)
[2017-08-12 04:30] VITALS: BP 84/56; PULSE 98; TEMP 37; O2SAT 95; Ht 152.4 cm; Wt 92.4 kg
[2017-08-12] MEDS ORDERED: MAGNESIUM SULFATE 1GM / D5W 1 GM in PREMIXED IN D5W 100 ML IV SCH (04:45)
[2017-08-12] MEDS ORDERED: POTASSIUM CHLR 10 MEQ / WTR 10 MEQ in PREMIXED WATER 100 ML IV SCH (04:45)
[2017-08-12] MEDS: NSS + 20MEQ KCL 1000ML 1,000 ML IV SCH ×4 (04:56→23:27)
[2017-08-12] MEDS: LEVOTHYROXINE 75 MCG TAB PO SCH (06:06)
[2017-08-12 06:41] LABS: INFLUENZA A PCR Neg for Influ A (NEG); INFLUENZA B PCR Neg for Influ B (NEG)
[2017-08-12 06:56] VITALS: BP 98/63; PULSE 99
--- NOTE | 2017-08-12 07:49 | DIAGNOSTIC IMAGING REPORT ---
ABDOMEN 2VIEW W/PA CHEST RTN HISTORY: 51 years-old Female Post op fever post operative fever. COMPARISON: Chest radiograph 03/27/2016 and 07/13/2013, CT abdomen and pelvis of same day. TECHNIQUE: Frontal view of the chest with erect and supine views of the abdomen FINDINGS: The cardiomediastinal and hilar silhouettes are within normal limits. Nodular density of the lateral left mid lung suggests a calcified granuloma. No pneumothorax, pleural effusion or focal airspace consolidation. Cholecystectomy clips noted. No pneumoperitoneum. Bowel gas pattern is nonobstructive. No urolith identified. No fracture. IMPRESSION: 1. No acute cardiopulmonary process. 2. Nonobstructive bowel gas pattern without pneumoperitoneum. 3. Prior cholecystectomy The above report was generated using voice recognition software. It may contain grammatical, syntax or spelling errors. Electronically signed by: Binh Garcia M.D. 08/12/2017 7:48 AM Dictated Date/Time: 08/12/2017 7:42 AM
[2017-08-12 07:51] VITALS: BP 98/65; PULSE 92; TEMP 37; O2SAT 95
[2017-08-12 08:00] LABS: BASO % 0.1 %; BASO ABS # 0.01 K/uL (0-0.2); COMPLETE YES; HEMATOCRIT 30.2 % (37-47); IG% 0.7 %; LYMPH % 1.4 %; LYMPH ABS # 0.18 K/uL (1.2-3.4); MEAN CELL VOLUME 92.9 fL (80-100); MEAN CORPUSCULAR HGB CONC 34.4 g/dl (32-36); MEAN PLATELET VOLUME 9.4 fL (7.4-10.4); NEUT % 93.8 %; PLATELET COUNT 191 K/uL (130-400); RED BLOOD COUNT 3.25 M/uL (4.2-5.4); WHITE BLOOD COUNT 12.95 K/uL (4.8-10.8)
[2017-08-12] MEDS ORDERED: PIPERACILL/TAZOBAC CONSULT ACTIVE PRN (08:00)
[2017-08-12] MEDS ORDERED: VANCOMYCIN INJ 1,250 MG in SODIUM CHLORIDE 0.9% 250ML 250 ML IV SCH (08:00)
[2017-08-12] MEDS ORDERED: VANCOMYCIN CONSULT ACTIVE PRN (08:00)
[2017-08-12] MEDS: PIPERACILL/TAZOBAC IV 3.375 GM in DEXTROSE 5% 100ML 100 ML IV SCH ×2 (08:25→16:25)
[2017-08-12] MEDS: PHENYTOIN SODIUM ER 100 MG CAP PO SCH ×2 (08:28→20:21)
[2017-08-12] MEDS: ACETAMINOPHEN 325 MG TAB PO PRN ×3 (08:29→23:35)
[2017-08-12 08:33] LABS: BUN/CREATININE RATIO 9.9 (10-20); CALCIUM 7.6 mg/dl (8.5-10.1); CREATININE 1.2 mg/dl (0.60-1.20); MAGNESIUM 1.8 mg/dl (1.8-2.4); POTASSIUM 3.2 mmol/L (3.5-5.1)
[2017-08-12 08:43] LABS: PHOSPHORUS 2.2 mg/dl (2.5-4.9)
--- NOTE | 2017-08-12 09:13 | GYNECOLOGICAL CONSULTATION ---
DATE OF CONSULTATION: 08/12/2017 HISTORY OF PRESENT ILLNESS: The patient is a 51-year-old 2, para 2-0-0-2 white female who presented to the Emergency Room with fever and chills as well as nausea. This started the evening before her presentation in the Emergency Room. She denied any abdominal pain, but she did have a little bit of burning with urination. Of note, she had a D&C hysteroscopy and an endometrial ablation done on 08/09/2017 for menorrhagia and endometrial polyps. This surgery according to Dr. Staley's operative report was uncomplicated. The patient is noted that after the surgery, she has had very scant discharge. It was not foul smelling or copious. The discharge is episodes of bright red bleeding, particularly when she wipes after urinating. She denies any pelvic pain. She did have some cramping on the day of the ablation, which was expected and has not noted any further increasing in pain in the pelvic area nor any increasing discharge over the last several days. In 1981, she had a tubal. She has had 2 deliveries without complications. No history of PID, VD or herpes. She did have a 5-cm cyst that they had been following with ultrasounds in the past, which was again noted on the CT scan of the abdomen prior to her admission. Pap smears have been within normal limits. Last one was done in July of 2016. PHYSICAL EXAMINATION: Her abdomen is soft and nontender. There is no rebound or guarding. On bimanual exam, the uterus is normal size, mobile and only mildly tender in the right adnexal area, where there is a fullness consistent with the 5-cm ovarian cyst. There is no cervical motion tenderness. There is virtually no discharge present. ASSESSMENT: A 51-year-old white female, who had undergone a D&C hysteroscopy, endometrial polypectomy and endometrial ablation on August 09, who now presents with fever of unknown origin, nausea and vomiting, but no other localizing signs for her fever. Her pelvic exam is benign. There is no cervical motion tenderness. The right adnexa is somewhat tender on palpation because of the ovarian cyst, but otherwise is unremarkable. With the absence of any localizing signs to the pelvis, I doubt that this sepsis is as a result of the recent procedure, particularly because of no evidence of any free air or any other abnormalities on her CT scans. There is no abnormal discharge also to increase the chances that the source is her uterus. However, we will follow along with you since she is a recent operative patient of our group and concur with the current plan to treat her sepsis with antibiotics pending her blood culture results. Thank you very much for this consultation. YARITZA
--- NOTE | 2017-08-12 09:38 | Pharmacy Progress Note ---
Pharmacy Antibiotic Consult Date of Service: Aug 12, 2017. Pharmacy Dosing Scope Pharmacy is consulted to initiate vancomycin IV dosing therapy, order appropriate labs and adjust drug dose/frequency. Subjective The patient is a 51 year old female admitted on Aug 12, 2017 at 03:39. Objective Height (Feet): 5 Height (Inches): 0.00 Weight (Kilograms): 92.400 Lab Results (24hrs): Test 08/11/17 23:17 08/12/17 00:00 08/12/17 00:06 08/12/17 00:15 Urine Color YELLOW Urine Appearance CLEAR (CLEAR) Urine pH 7.5 (4.5-7.5) Urine Specific [place] 1.019 (1.000-1.030) Urine Protein NEG (NEG) Urine Glucose (UA) NEG (NEG) Urine Ketones NEG (NEG) Urine Occult Blood TRACE (NEG) Urine Nitrite NEG (NEG) Urine Bilirubin NEG (NEG) Urine Urobilinogen NEG (NEG) Urine Leukocyte Esterase TRACE (NEG) Urine WBC (Auto) 1-5 /hpf (0-5) Urine RBC (Auto) 5-10 /hpf (0-4) Urine Hyaline Casts (Auto) 1-5 /lpf (0-5) Urine Epithelial Cells (Auto) >30 /lpf (0-5) Urine Bacteria (Auto) NEG (NEG) Influenza Type A (RT-PCR) Neg for Influ A (NEG) Influenza Type A Antigen Neg for Influ A (NEG) Influenza Type B Antigen Neg for Influ B (NEG) Influenza Type B (RT-PCR) Neg for Influ B (NEG) White Blood Count 5.80 K/uL (4.8-10.8) Red Blood Count 3.68 M/uL (4.2-5.4) Hemoglobin 11.9 g/dL (12.0-16.0) Hematocrit 34.4 % (37-47) Mean Corpuscular Volume 93.5 fL (80-100) Mean Corpuscular Hemoglobin 32.3 pg (25-34) Mean Corpuscular Hemoglobin Concent 34.6 g/dl (32-36) Platelet Count 199 K/uL (130-400) Mean Platelet Volume 9.7 fL (7.4-10.4) Neutrophils (%) (Auto) 94.1 % Lymphocytes (%) (Auto) 4.8 % Monocytes (%) (Auto) 0.7 % Eosinophils (%) (Auto) 0.0 % Basophils (%) (Auto) 0.2 % Neutrophils # (Auto) 5.46 K/uL (1.4-6.5) Lymphocytes # (Auto) 0.28 K/uL (1.2-3.4) Monocytes # (Auto) 0.04 K/uL (0.11-0.59) Eosinophils # (Auto) 0.00 K/uL (0-0.5) Basophils # (Auto) 0.01 K/uL (0-0.2) RDW Standard Deviation 42.0 fL (36.4-46.3) RDW Coefficient of Variation 12.3 % (11.5-14.5) Immature Granulocyte % (Auto) 0.2 % Immature Granulocyte # (Auto) 0.01 K/uL (0.00-0.02) Sodium Level 135 mmol/L (136-145) Potassium Level 3.4 mmol/L (3.5-5.1) Chloride Level 99 mmol/L (98-107) Carbon Dioxide Level 26 mmol/L (21-32) Anion Gap 10.0 mmol/L (3-11) Blood Urea Nitrogen 11 mg/dl (7-18) Creatinine 1.00 mg/dl (0.60-1.20) Est Creatinine Clear Calc Drug Dose 67.5 ml/min Estimated GFR () 75.5 Estimated GFR (Non- 65.2 BUN/Creatinine Ratio 11.2 (10-20) Random Glucose 119 mg/dl (70-99) Calcium Level 8.5 mg/dl (8.5-10.1) Magnesium Level 1.7 mg/dl (1.8-2.4) Total Bilirubin 0.4 mg/dl (0.2-1) Aspartate Amino Transf (AST/SGOT) 20 U/L (15-37) Alanine Aminotransferase (ALT/SGPT) 26 U/L (12-78) Alkaline Phosphatase 86 U/L (45-117) Total Protein 7.3 gm/dl (6.4-8.2) Albumin 3.7 gm/dl (3.4-5.0) Globulin 3.6 gm/dl (2.5-4.0) Albumin/Globulin Ratio 1.0 (0.9-2) Lipase 117 U/L (73-393) Bedside Lactic Acid Venous 3.04 mmol/L (0.90-1.70) Test 08/12/17 07:42 White Blood Count 12.95 K/uL (4.8-10.8) Red Blood Count 3.25 M/uL (4.2-5.4) Hemoglobin 10.4 g/dL (12.0-16.0) Hematocrit 30.2 % (37-47) Mean Corpuscular Volume 92.9 fL (80-100) Mean Corpuscular Hemoglobin 32.0 pg (25-34) Mean Corpuscular Hemoglobin Concent 34.4 g/dl (32-36) Platelet Count 191 K/uL (130-400) Mean Platelet Volume 9.4 fL (7.4-10.4) Neutrophils (%) (Auto) 93.8 % Lymphocytes (%) (Auto) 1.4 % Monocytes (%) (Auto) 4.0 % Eosinophils (%) (Auto) 0.0 % Basophils (%) (Auto) 0.1 % Neutrophils # (Auto) 12.15 K/uL (1.4-6.5) Lymphocytes # (Auto) 0.18 K/uL (1.2-3.4) Monocytes # (Auto) 0.52 K/uL (0.11-0.59) Eosinophils # (Auto) 0.00 K/uL (0-0.5) Basophils # (Auto) 0.01 K/uL (0-0.2) RDW Standard Deviation 42.8 fL (36.4-46.3) RDW Coefficient of Variation 12.5 % (11.5-14.5) Immature Granulocyte % (Auto) 0.7 % Immature Granulocyte # (Auto) 0.09 K/uL (0.00-0.02) Sodium Level 137 mmol/L (136-145) Potassium Level 3.2 mmol/L (3.5-5.1) Chloride Level 104 mmol/L (98-107) Carbon Dioxide Level 26 mmol/L (21-32) Anion Gap 7.0 mmol/L (3-11) Blood Urea Nitrogen 12 mg/dl (7-18) Creatinine 1.20 mg/dl (0.60-1.20) Est Creatinine Clear Calc Drug Dose 56.3 ml/min Estimated GFR () 60.6 Estimated GFR (Non- 52.3 BUN/Creatinine Ratio 9.9 (10-20) Random Glucose 112 mg/dl (70-99) Lactic Acid Level 2.0 mmol/L (0.4-2.0) Calcium Level 7.6 mg/dl (8.5-10.1) Phosphorus Level 2.2 mg/dl (2.5-4.9) Magnesium Level 1.8 mg/dl (1.8-2.4) Total Bilirubin 0.5 mg/dl (0.2-1) Aspartate Amino Transf (AST/SGOT) 118 U/L (15-37) Alanine Aminotransferase (ALT/SGPT) 92 U/L (12-78) Alkaline Phosphatase 75 U/L (45-117) Total Protein 5.6 gm/dl (6.4-8.2) Albumin 2.8 gm/dl (3.4-5.0) Globulin 2.8 gm/dl (2.5-4.0) Albumin/Globulin Ratio 1.0 (0.9-2) Assessment & Plan Assessment * 51 yo F with sepsis 2nd ?endometriosis s/p D&C and ablation 08/09/17. Patient is febrile and tachycardic with elevated WBC. On empiric Zosyn, vancomycin. * Goal vancomycin trough 15-20 mcg/mL * SCr increased slightly over ~8 hr today, rising from 1.0 to 1.2 mg/dL. Unclear if this is a significant trend up or insignificant/minor fluctuation. OK to schedule vancomycin for now, but will re-evaluate before 2nd maintenance dose to ensure patient's renal function does not decline further. * Vancomycin 24 mg/kg load given (1000 + 1250 mg). Will continue with 16 mg/kg IV q12h * Trough prior to 4th overall dose (or earlier if SCr continues to rise significantly) Plan * Vancomycin 1500 mg IV q12h * Trough 08/13 @ 1930 Pharmacy will continue to follow and will adjust dose/frequency as necessary. Thank you
[2017-08-12] MEDS ORDERED: POTASSIUM CHLR 10 MEQ / WTR 10 MEQ in PREMIXED WATER 100 ML IV STA (09:43)
--- NOTE | 2017-08-12 10:35 | DIAGNOSTIC IMAGING REPORT ---
ABD/PELVIS IV CONTRAST ONLY HISTORY: 51 years-old Female Post op fever. Had odd ticket clerk surg 2 days ago. Postoperative fever with history of recent gynecologic surgery COMPARISON: Abdominal radiographs of same day, pelvic ultrasound 04/13/2017 TECHNIQUE: Multiple axial CT images of the abdomen and pelvis were obtained following the intravenous administration of 120 mL Optiray 320. A dose lowering technique was used consistent with the principals of SAGAR. FINDINGS: Mild dependent bibasilar atelectasis. There is no pneumoperitoneum. Imaged inferior cardiac chambers are unremarkable. Prior cholecystectomy. The liver, pancreas and adrenal glands are within normal limits. Probable granuloma of the posterior spleen noted with a nonspecific 7 mm hyperattenuating focus of the spleen seen on image 121 of series 3 suggesting hemangioma. Kidneys, ureters and urinary bladder are unremarkable. There is a homogeneous cystic structure of the right adnexum, 5.2 x 6.4 x 5.6 cm. There is trace fluid within the endocervical canal. Enlarged fibroid uterus is noted. The abdominal aorta is normal in course and caliber with mild atherosclerotic plaquing. No bulky retroperitoneal adenopathy identified. There is no bowel obstruction or focal bowel wall thickening identified. Stool ball in the rectal vault noted. The appendix appears normal. Soft tissues are unremarkable. Bones appear intact. IMPRESSION: 1. 5.2 x 6.4 x 5.6 cm cystic lesion of the right adnexum. This could be further evaluated with dedicated pelvic ultrasound. 2. Fibroid uterus. 3. Normal appendix. 4. Prior cholecystectomy. The above report was generated using voice recognition software. It may contain grammatical, syntax or spelling errors. Electronically signed by: Binh Garcia M.D. 08/12/2017 10:33 AM Dictated Date/Time: 08/12/2017 10:24 AM
--- NOTE | 2017-08-12 12:53 | Family Medicine Progress Note ---
Progress Note Date of Service Aug 12, 2017. Subjective Pt evaluation today including: conversation w/ patient, conversation w/ family , physical exam, chart review, review of studies, review of inpatient medication list Pain: No pain reported PO Intake: Tolerating PO intake Voiding: no voiding problems Ms. He reports that she is not in any pain today, but feels fatigued and weak. This began yesterday with a "weird sensation in her stomach" and progressed to fever, chills, vomiting x5 (no blood). She states that she has had pain on urinating since her D&C, but denies frequency or urgency. She has also had blood in her urine, but states that this was vaginal bleeding. She denies abdominal pain, SOB but reports that she has been coughing slightly since yesterday, but no mucus. She denies recent travel, liver problems, or IV drug use. She had her gallbladder out last year. Constitutional: + fever, + chills, + sweats, + weakness, + fatigue Respiratory: + cough, No sputum, No wheezing, No shortness of breath, No dyspnea on exertion Cardiovascular: No chest pain, No edema, No palpitations Abdomen: No pain, No nausea, No vomiting, No diarrhea, No constipation Female : + dysuria All Other Systems: Reviewed and Negative Medications Current Inpatient Medications Medications (Trade) Dose Ordered Sig/Dada Route Start Time Stop Time Status Last Admin Dose Admin Ioversol (Optiray 320) 125 ml UD PRN IV 08/12/17 00:45 08/16/17 00:44 Acetaminophen (Tylenol Tab) 650 mg Q4H PRN PO 08/12/17 03:45 09/11/17 03:44 08/12/17 08:29 650 MG Ondansetron HCl (Zofran Inj) 4 mg Q6H PRN IV 08/12/17 03:45 09/11/17 03:44 08/12/17 05:40 4 MG Levothyroxine Sodium (Synthroid Tab) 75 mcg DAILYBB PO 08/12/17 06:30 09/11/17 06:29 08/12/17 06:06 75 MCG Phenytoin Sodium (Dilantin Er Cap) 100 mg BID PO 08/12/17 08:00 09/11/17 08:59 08/12/17 08:28 100 MG Potassium Chloride/Sodium Chloride 1,000 ml @ 200 mls/hr Q5H IV 08/12/17 04:45 09/11/17 04:44 08/12/17 10:27 200 MLS/HR Piperacillin Sod/ Tazobactam Sod 3.375 gm/Dextrose 115 ml @ 200 mls/hr Q8H IV 08/12/17 08:00 08/14/17 07:59 08/12/17 08:25 200 MLS/HR Vancomycin HCl (Consult) 1 ea UD PRN N/A 08/12/17 08:00 09/11/17 07:59 Piperacillin Sod/ Tazobactam Sod (Consult) 1 ea UD PRN N/A 08/12/17 08:00 09/11/17 07:59 Vancomycin HCl 1500 mg/Sodium Chloride 530 ml @ 200 mls/hr Q12@0800,2000 IV 08/12/17 20:00 08/22/17 19:59 Objective Vital Signs Date Time Temp Pulse Resp B/P (MAP) Pulse Ox O2 Delivery O2 Flow Rate FiO2 08/12/17 08:00 Room Air 08/12/17 07:51 37.0 92 18 98/65 (76) 95 Room Air 08/12/17 06:56 99 98/63 (75) 08/12/17 04:30 37.0 98 18 84/56 95 Room Air 08/12/17 03:06 37.4 08/12/17 01:49 37.9 111 16 112/53 Room Air 08/12/17 00:39 39.5 08/11/17 22:16 37.3 117 18 134/81 95 Room Air Physical Exam General Appearance: WD/WN, no apparent distress Respiratory/Chest: chest non-tender, lungs clear, normal breath sounds, no respiratory distress, no accessory muscle use Cardiovascular: regular rate, rhythm, no edema, no gallop, no JVD, no murmur Abdomen: normal bowel sounds, non tender, soft, no organomegaly, no pulsatile mass Laboratory Results Last 24 Hours Test 08/11/17 23:17 08/12/17 00:00 08/12/17 00:06 08/12/17 00:15 Urine Color YELLOW Urine Appearance CLEAR Urine pH 7.5 Urine Specific [place] 1.019 Urine Protein NEG Urine Glucose (UA) NEG Urine Ketones NEG Urine Occult Blood TRACE Urine Nitrite NEG Urine Bilirubin NEG Urine Urobilinogen NEG Urine Leukocyte Esterase TRACE Urine WBC (Auto) 1-5 /hpf Urine RBC (Auto) 5-10 /hpf Urine Hyaline Casts (Auto) 1-5 /lpf Urine Epithelial Cells (Auto) >30 /lpf Urine Bacteria (Auto) NEG Influenza Type A (RT-PCR) Neg for Influ A Influenza Type A Antigen Neg for Influ A Influenza Type B Antigen Neg for Influ B Influenza Type B (RT-PCR) Neg for Influ B White Blood Count 5.80 K/uL Red Blood Count 3.68 M/uL Hemoglobin 11.9 g/dL Hematocrit 34.4 % Mean Corpuscular Volume 93.5 fL Mean Corpuscular Hemoglobin 32.3 pg Mean Corpuscular Hemoglobin Concent 34.6 g/dl Platelet Count 199 K/uL Mean Platelet Volume 9.7 fL Neutrophils (%) (Auto) 94.1 % Lymphocytes (%) (Auto) 4.8 % Monocytes (%) (Auto) 0.7 % Eosinophils (%) (Auto) 0.0 % Basophils (%) (Auto) 0.2 % Neutrophils # (Auto) 5.46 K/uL Lymphocytes # (Auto) 0.28 K/uL Monocytes # (Auto) 0.04 K/uL Eosinophils # (Auto) 0.00 K/uL Basophils # (Auto) 0.01 K/uL RDW Standard Deviation 42.0 fL RDW Coefficient of Variation 12.3 % Immature Granulocyte % (Auto) 0.2 % Immature Granulocyte # (Auto) 0.01 K/uL Sodium Level 135 mmol/L Potassium Level 3.4 mmol/L Chloride Level 99 mmol/L Carbon Dioxide Level 26 mmol/L Anion Gap 10.0 mmol/L Blood Urea Nitrogen 11 mg/dl Creatinine 1.00 mg/dl Est Creatinine Clear Calc Drug Dose 67.5 ml/min Estimated GFR () 75.5 Estimated GFR (Non- 65.2 BUN/Creatinine Ratio 11.2 Random Glucose 119 mg/dl Calcium Level 8.5 mg/dl Magnesium Level 1.7 mg/dl Total Bilirubin 0.4 mg/dl Aspartate Amino Transf (AST/SGOT) 20 U/L Alanine Aminotransferase (ALT/SGPT) 26 U/L Alkaline Phosphatase 86 U/L Total Protein 7.3 gm/dl Albumin 3.7 gm/dl Globulin 3.6 gm/dl Albumin/Globulin Ratio 1.0 Lipase 117 U/L Bedside Lactic Acid Venous 3.04 mmol/L Test 08/12/17 07:42 White Blood Count 12.95 K/uL Red Blood Count 3.25 M/uL Hemoglobin 10.4 g/dL Hematocrit 30.2 % Mean Corpuscular Volume 92.9 fL Mean Corpuscular Hemoglobin 32.0 pg Mean Corpuscular Hemoglobin Concent 34.4 g/dl Platelet Count 191 K/uL Mean Platelet Volume 9.4 fL Neutrophils (%) (Auto) 93.8 % Lymphocytes (%) (Auto) 1.4 % Monocytes (%) (Auto) 4.0 % Eosinophils (%) (Auto) 0.0 % Basophils (%) (Auto) 0.1 % Neutrophils # (Auto) 12.15 K/uL Lymphocytes # (Auto) 0.18 K/uL Monocytes # (Auto) 0.52 K/uL Eosinophils # (Auto) 0.00 K/uL Basophils # (Auto) 0.01 K/uL RDW Standard Deviation 42.8 fL RDW Coefficient of Variation 12.5 % Immature Granulocyte % (Auto) 0.7 % Immature Granulocyte # (Auto) 0.09 K/uL Sodium Level 137 mmol/L Potassium Level 3.2 mmol/L Chloride Level 104 mmol/L Carbon Dioxide Level 26 mmol/L Anion Gap 7.0 mmol/L Blood Urea Nitrogen 12 mg/dl Creatinine 1.20 mg/dl Est Creatinine Clear Calc Drug Dose 56.3 ml/min Estimated GFR () 60.6 Estimated GFR (Non- 52.3 BUN/Creatinine Ratio 9.9 Random Glucose 112 mg/dl Lactic Acid Level 2.0 mmol/L Calcium Level 7.6 mg/dl Phosphorus Level 2.2 mg/dl Magnesium Level 1.8 mg/dl Total Bilirubin 0.5 mg/dl Aspartate Amino Transf (AST/SGOT) 118 U/L Alanine Aminotransferase (ALT/SGPT) 92 U/L Alkaline Phosphatase 75 U/L Total Protein 5.6 gm/dl Albumin 2.8 gm/dl Globulin 2.8 gm/dl Albumin/Globulin Ratio 1.0 Assessment and Plan Mrs. He is a 51 year old female who presents to the ER with fever and chills 2 days post op from D&C and ablation. Sepsis - unclear etiology but given history suspicion highest for UTI - elevated WCC - 12.9 - blood cultures positive x2 for gram positive cocci - awaiting sensitivities - urine cultures pending - influenza swabs negative - given 3L of fluid thus far - now running maintenance fluids at 125 mls/hr - treat with broad spectrum antibiotics, Zosyn + vancomycin - narrow based on sensitivities tomorrow - Thank you to [employer] for consult: - benign pelvic exam, no cervical motion tenderness - unlikely to be endometritis Elevated LFTs - AST increased from 20 to 118 - ALT increased from 26 to 92 - likely caused by vomiting or Zosyn - will recheck tomorrow - no localizing symptoms Hypokalemia - 3.2 today, dropped from 3.4 - will supplement and recheck tomorrow - Mg 1.8 Hypothyroidism - Continue levothyroxine Seizure disorder - continue phenytoin Disposition: remains on med/surg Code: Full DVT Prophylaxis: not warranted Resident Physician Supervision Note: I interviewed and examined the patient. Discussed with Dr. Canales and agree with findings and plan as documented in the note. Any exceptions or clarifications are listed here: None Documented By: Omar Maloney feeling sick but better than when she came in does have dysuria vitals noted nad breathing unlabored no pallor or icterus sepsis - uncertain source. urinary sx make UTI most likely. blood cultures 1/ 2 but definitely continue broad coverage until finalized otherwise as above Resident Tracking Resident Involvement: Resident Care Provided Care Provided: Adult Hospital Medicine
[2017-08-12] MEDS ORDERED: VANCOMYCIN INJ 1,000 MG in SODIUM CHLORIDE 0.9% 250ML 250 ML IV SCH (15:00)
[2017-08-12 16:00] VITALS: BP 120/76; PULSE 91; TEMP 37.1; O2SAT 99
[2017-08-12 16:07] VITALS: BP 98/65; PULSE 92; TEMP 37; O2SAT 95
[2017-08-12] MEDS ORDERED: VANCOMYCIN TROUGH ONE (19:30)
[2017-08-12] MEDS: VANCOMYCIN INJ 1,500 MG in SODIUM CHLORIDE 0.9% 500ML 500 ML IV SCH (20:20)
[2017-08-12] MEDS ORDERED: OXYCODONE HCL IR 5 MG TAB (IMMEDIATE RELEASE) PO PRN (21:15)
[2017-08-12 23:30] VITALS: TEMP 39.1
[2017-08-13] VITALS (9 sets, daily range): BP systolic 126–131; BP diastolic 80–85; PULSE 64–112; TEMP 36.5–38.4; O2SAT 96–98
[2017-08-13] MEDS: PIPERACILL/TAZOBAC IV 3.375 GM in DEXTROSE 5% 100ML 100 ML IV SCH ×2 (00:38→08:03)
--- NOTE | 2017-08-13 03:34 | EMERGENCY ROOM VISIT NOTE ---
History First contact with patient: 23:02 Chief Complaint: INFECTION Stated Complaint: SEPSIS Nursing Triage Summary: Patient reports she had a D&C monday and now having fever/chills/nausea/vomiting. History of Present Illness The patient is a 51 year old female who presents to the Emergency Room with complaints of fever, nausea, and vomiting past one day. The patient underwent a D&C as well as uterine ablation 2 days ago. The procedure was reportedly a complicated. The patient has been having some very minimal lower abdominal discomfort after the procedure, but overall no significant vaginal drainage, discharge, or bleeding. The patient states that earlier this morning, roughly 12 hours ago, she began with some nausea and several episodes of emesis. She noted shaking chills and a fever of 102F at home and attempted to take ibuprofen, however she vomited this shortly thereafter. The patient does not have significant chest pain, chest tightness, shortness of breath, or abdominal pain. She has a small amount of discomfort with urination, but was evidently catheterized for the procedure. She does not have a history of DVT or PE in the past. No lower extremity pain or swelling. She rates her overall discomfort a 6/10. Review of Systems More than 10 systems were reviewed and otherwise negative with the exception of history of present illness. Past Medical/Surgical History Medical Problems: (1) Acute cholecystitis (2) Sepsis Family History No pertinent family history Social History Smoking Status: Unknown if Ever Smoked Drug Use: none Marital Status: Housing Status: lives with family Current/Historical Medications Scheduled Levothyroxine Sodium (Synthroid), 75 MCG PO QAM Phenytoin Sodium (Dilantin), 100 MG PO BID Triamterene/Hctz (Dyazide 37.5MG/25MG), 1 TAB PO QAM Physical Exam Vital Signs Date Time Temp Pulse Resp B/P (MAP) Pulse Ox O2 Delivery O2 Flow Rate FiO2 08/12/17 03:06 37.4 08/12/17 01:49 37.9 111 16 112/53 Room Air 08/12/17 00:39 39.5 08/11/17 22:16 37.3 117 18 134/81 95 Room Air Physical Exam VITALS: Vitals are noted on the nurse's note and reviewed by myself. Vital signs with noted fever and tachycardia GENERAL: Well-developed, well-nourished, white female who appears ill on presentation. She is experiencing shaking chills. She is cooperative with the examination. NECK: Supple without nuchal rigidity. No lymphadenopathy. No thyromegaly. Cervical spine is nontender. HEART: Regular rate and rhythm without murmurs gallops or rubs. LUNGS: Clear to auscultation bilaterally without wheezes, rales or rhonchi. No retractions or accessory muscle use. ABDOMEN: Positive normal bowel sounds x 4. Soft, nontender, without masses or organomegaly. No guarding or rebound tenderness. No CVA tenderness. MUSCULOSKELETAL: No muscle atrophy, erythema, or edema noted. Full range of motion without joint tenderness in all extremities. Negative Homans sign bilateral. NEURO: Patient was alert and oriented to person place and time. CN II through XII grossly intact. Medical Decision & Procedures ER Provider Diagnostic Interpretation: ABDOMEN 2VIEW W/PA CHEST RTN HISTORY: 51 years-old Female Post op fever post operative fever. COMPARISON: Chest radiograph 03/27/2016 and 07/13/2013, CT abdomen and pelvis of same day. TECHNIQUE: Frontal view of the chest with erect and supine views of the abdomen FINDINGS: The cardiomediastinal and hilar silhouettes are within normal limits. Nodular density of the lateral left mid lung suggests a calcified granuloma. No pneumothorax, pleural effusion or focal airspace consolidation. Cholecystectomy clips noted. No pneumoperitoneum. Bowel gas pattern is nonobstructive. No urolith identified. No fracture. IMPRESSION: 1. No acute cardiopulmonary process. 2. Nonobstructive bowel gas pattern without pneumoperitoneum. 3. Prior cholecystectomy ABD/PELVIS IV CONTRAST ONLY HISTORY: 51 years-old Female Post op fever. Had magazine writer surg 2 days ago. Postoperative fever with history of recent gynecologic surgery COMPARISON: Abdominal radiographs of same day, pelvic ultrasound 04/13/2017 TECHNIQUE: Multiple axial CT images of the abdomen and pelvis were obtained following the intravenous administration of 120 mL Optiray 320. A dose lowering technique was used consistent with the principals of VICTORINARA. FINDINGS: Mild dependent bibasilar atelectasis. There is no pneumoperitoneum. Imaged inferior cardiac chambers are unremarkable. Prior cholecystectomy. The liver, pancreas and adrenal glands are within normal limits. Probable granuloma of the posterior spleen noted with a nonspecific 7 mm hyperattenuating focus of the spleen seen on image 121 of series 3 suggesting hemangioma. Kidneys, ureters and urinary bladder are unremarkable. There is a homogeneous cystic structure of the right adnexum, 5.2 x 6.4 x 5.6 cm. There is trace fluid within the endocervical canal. Enlarged fibroid uterus is noted. The abdominal aorta is normal in course and caliber with mild atherosclerotic plaquing. No bulky retroperitoneal adenopathy identified. There is no bowel obstruction or focal bowel wall thickening identified. Stool ball in the rectal vault noted. The appendix appears normal. Soft tissues are unremarkable. Bones appear intact. IMPRESSION: 1. 5.2 x 6.4 x 5.6 cm cystic lesion of the right adnexum. This could be further evaluated with dedicated pelvic ultrasound. 2. Fibroid uterus. 3. Normal appendix. 4. Prior cholecystectomy. Laboratory Results Test 08/11/17 23:17 08/12/17 00:00 08/12/17 00:06 08/12/17 00:15 Urine Color YELLOW Urine Appearance CLEAR (CLEAR) Urine pH 7.5 (4.5-7.5) Urine Specific [place] 1.019 (1.000-1.030) Urine Protein NEG (NEG) Urine Glucose (UA) NEG (NEG) Urine Ketones NEG (NEG) Urine Occult Blood TRACE (NEG) Urine Nitrite NEG (NEG) Urine Bilirubin NEG (NEG) Urine Urobilinogen NEG (NEG) Urine Leukocyte Esterase TRACE (NEG) Urine WBC (Auto) 1-5 /hpf (0-5) Urine RBC (Auto) 5-10 /hpf (0-4) Urine Hyaline Casts (Auto) 1-5 /lpf (0-5) Urine Epithelial Cells (Auto) >30 /lpf (0-5) Urine Bacteria (Auto) NEG (NEG) Influenza Type A (RT-PCR) Neg for Influ A (NEG) Influenza Type A Antigen Neg for Influ A (NEG) Influenza Type B Antigen Neg for Influ B (NEG) Influenza Type B (RT-PCR) Neg for Influ B (NEG) Lipase 117 U/L (73-393) Bedside Lactic Acid Venous 3.04 mmol/L (0.90-1.70) Medications Administered Medications (Trade) Dose Ordered Sig/Dada Route Start Time Stop Time Status Last Admin Dose Admin Sodium Chloride/ Sodium Chloride 2,000 ml @ 999 mls/hr Q2H1M ONCE IV 08/11/17 23:30 08/12/17 01:30 DC 08/12/17 00:32 999 MLS/HR Ketorolac Tromethamine (Toradol Inj) 30 mg NOW STAT IV 08/11/17 23:17 08/11/17 23:25 DC 08/12/17 00:33 30 MG Ondansetron HCl (Zofran Inj) 4 mg NOW STAT IV 08/11/17 23:17 08/11/17 23:25 DC 08/12/17 00:33 4 MG Acetaminophen 100 ml @ 400 mls/hr NOW ONCE IV 08/11/17 23:30 08/11/17 23:44 DC 08/12/17 00:32 400 MLS/HR Piperacillin Sod/ Tazobactam Sod (Zosyn Iv) 4.5 gm NOW STAT IV 08/12/17 00:34 08/12/17 00:40 DC 08/12/17 00:34 4.5 GM Sodium Chloride 1,000 ml @ 999 mls/hr Q1H1M ONCE IV 08/12/17 03:00 08/12/17 04:00 DC 08/12/17 03:03 999 MLS/HR Vancomycin HCl (Vancomycin 1gm/ 270ml Nss) 1 gm STK-MED ONCE .ROUTE 08/12/17 03:37 08/12/17 03:38 DC 08/12/17 03:39 1 GM ED Course Physical exam and history were performed. Nursing notes, EMR, and Medication List were personally reviewed. Patient appears to have fever and chills after a surgical procedure 2 days ago. On examination the patient is tachycardic and febrile. IV access was established and labs were obtained. The patient was hydrated with normal saline and given IV Tylenol and IV Toradol. Blood cultures were gathered, and she did have a positive [id number] lactic acid. She was started on Zosyn and Vancomycin here in the department. Plain films of the chest did not show significant acute findings. CT of the abdomen and pelvis was ordered out of concern for possible infection. The patient's blood work is as above and was reviewed. She does not have a significantly elevated white blood cell count. She was without gross anemia or significant electrolyte imbalance. Again her lactic acid was positive. The patient continued to have a waxing and waning fever here in the department despite antipyretics. CT scan did not show obvious abscess or cause of the infection. Urine was questionable for infection with culture pending. She was given a third liter of fluid bolus. I discussed the case with the on-call SAILING INSTRUCTOR, Dr. Portillo, who recommended medicine evaluation and indicated that she would consult on the patient. I discussed the case with the [facility] hospitalist, Dr. Hunter, who agreed to evaluate the patient here in the department. Please see his dictation for further patient course, plan, and disposition. The chart was completed utilizing [employer] Voice Recognition Software. Grammatical errors, random word insertions, pronoun errors, and incomplete sentences are an occasional consequence of this system due to software limitations, ambient noise, and hardware issues. Any formal questions or concerns about the content, text, or information contained within the body of this dictation should be directly addressed to the provider for clarification. . Medical Decision Differential diagnosis: Etiologies such as sepsis, UTI, pneumonia, metabolic, electrolyte abnormalities , cardiac sources, intracerebral event, toxicologic, neurologic, as well as others were entertained. Medication Reconcilliation Current Medication List: was personally reviewed by me Impression Primary Impression: Sepsis Additional Impression: Postoperative fever Departure Information Dispostion Admitted as an inpatient Referrals Cuauhtemoc Davidson M.D. (PCP) Forms WORK / SCHOOL INSTRUCTIONS, HOME CARE DOCUMENTATION FORM, IMPORTANT VISIT INFORMATION Patient Instructions My [facility] Problem Qualifiers
[2017-08-13] MEDS: LEVOTHYROXINE 75 MCG TAB PO SCH (06:49)
[2017-08-13] MEDS: ACETAMINOPHEN 325 MG TAB PO PRN (06:53)
[2017-08-13 07:54] LABS: ALB/GLOB RATIO 0.8 (0.9-2); BUN/CREATININE RATIO 10.8 (10-20); CALCIUM 7.3 mg/dl (8.5-10.1); CREATININE 0.72 mg/dl (0.60-1.20); HEMATOCRIT 31.7 % (37-47); MEAN CELL VOLUME 94.3 fL (80-100); MEAN PLATELET VOLUME 10.5 fL (7.4-10.4); PLATELET COUNT 160 K/uL (130-400); POTASSIUM 3.3 mmol/L (3.5-5.1); RED BLOOD COUNT 3.36 M/uL (4.2-5.4); WHITE BLOOD COUNT 6.95 K/uL (4.8-10.8)
[2017-08-13] MEDS: NSS + 20MEQ KCL 1000ML 1,000 ML IV SCH (08:00)
[2017-08-13] MEDS: VANCOMYCIN INJ 1,500 MG in SODIUM CHLORIDE 0.9% 500ML 500 ML IV SCH (08:03)
[2017-08-13] MEDS: PHENYTOIN SODIUM ER 100 MG CAP PO SCH ×2 (08:08→20:05)
[2017-08-13] MEDS ORDERED: IBUPROFEN 200 MG TAB PO ONE (08:44)
[2017-08-13] MEDS ORDERED: IBUPROFEN 200 MG TAB PO PRN (08:45)
--- NOTE | 2017-08-13 11:53 | Family Medicine Progress Note ---
Progress Note Date of Service Aug 13, 2017. Subjective Pt evaluation today including: conversation w/ patient, physical exam, chart review, lab review, review of inpatient medication list Pain: Severe headache reported PO Intake: Tolerating PO Intake Voiding: no voiding problems Ms. He reports she has a severe frontal headache today. She denies neck stiffness, photophobia, and states she does not normally get headaches. She states she usually drinks coffee everyday and has not had any today, which she thinks might be contributing to the headache. She also reports that overnight she felt feverish, with chills. She states that her dysuria has improved. Constitutional: + fever, + chills, + weakness, + fatigue, No sweats Respiratory: No cough, No sputum, No wheezing, No shortness of breath Cardiovascular: No chest pain Abdomen: No pain, No nausea, No vomiting, No diarrhea, No constipation Female : No dysuria, No urinary frequency All Other Systems: Reviewed and Negative Medications Current Inpatient Medications Medications (Trade) Dose Ordered Sig/Dada Route Start Time Stop Time Status Last Admin Dose Admin Ioversol (Optiray 320) 125 ml UD PRN IV 08/12/17 00:45 08/16/17 00:44 Acetaminophen (Tylenol Tab) 650 mg Q4H PRN PO 08/12/17 03:45 09/11/17 03:44 08/13/17 06:53 650 MG Ondansetron HCl (Zofran Inj) 4 mg Q6H PRN IV 08/12/17 03:45 09/11/17 03:44 08/12/17 05:40 4 MG Levothyroxine Sodium (Synthroid Tab) 75 mcg DAILYBB PO 08/12/17 06:30 09/11/17 06:29 08/13/17 06:49 75 MCG Phenytoin Sodium (Dilantin Er Cap) 100 mg BID PO 08/12/17 08:00 09/11/17 08:59 08/13/17 08:08 100 MG Potassium Chloride/Sodium Chloride 1,000 ml @ 125 mls/hr Q8H IV 08/12/17 04:45 09/11/17 04:44 Future Hold 08/13/17 08:00 125 MLS/HR Piperacillin Sod/ Tazobactam Sod 3.375 gm/Dextrose 115 ml @ 200 mls/hr Q8H IV 08/12/17 08:00 08/14/17 07:59 08/13/17 08:03 200 MLS/HR Vancomycin HCl (Consult) 1 ea UD PRN N/A 08/12/17 08:00 09/11/17 07:59 Piperacillin Sod/ Tazobactam Sod (Consult) 1 ea UD PRN N/A 08/12/17 08:00 09/11/17 07:59 Vancomycin HCl 1500 mg/Sodium Chloride 530 ml @ 200 mls/hr Q12@0800,2000 IV 08/12/17 20:00 08/22/17 19:59 08/13/17 08:03 200 MLS/HR Oxycodone HCl (Roxicodone Immediate Rel Tab) 5 mg Q2H PRN PO 08/12/17 21:15 08/26/17 21:14 08/12/17 21:53 5 MG Ibuprofen (Advil Tab) 400 mg Q4 PRN PO 08/13/17 08:45 09/12/17 08:44 Objective Vital Signs Date Time Temp Pulse Resp B/P (MAP) Pulse Ox O2 Delivery O2 Flow Rate FiO2 08/13/17 09:50 36.8 08/13/17 08:09 38.1 95 18 131/80 (97) 96 Room Air 08/13/17 08:00 Room Air 08/13/17 06:50 38.4 08/13/17 01:01 112 18 127/82 (97) 98 Room Air 08/13/17 00:44 37.7 08/13/17 00:00 Room Air 08/12/17 23:30 39.1 08/12/17 20:00 Room Air 08/12/17 16:07 37.0 92 18 98/65 (76) 95 Room Air 08/12/17 16:00 37.1 91 20 120/76 (91) 99 Room Air 08/12/17 16:00 Room Air Physical Exam General Appearance: WD/WN, no apparent distress Neck: supple, no adenopathy Respiratory/Chest: chest non-tender, lungs clear, normal breath sounds, no respiratory distress, no accessory muscle use Cardiovascular: regular rate, rhythm, no edema, no gallop, no JVD, no murmur Abdomen: normal bowel sounds, non tender, soft, no organomegaly, no pulsatile mass Laboratory Results Last 24 Hours Test 08/13/17 06:38 White Blood Count 6.95 K/uL Red Blood Count 3.36 M/uL Hemoglobin 11.1 g/dL Hematocrit 31.7 % Mean Corpuscular Volume 94.3 fL Mean Corpuscular Hemoglobin 33.0 pg Mean Corpuscular Hemoglobin Concent 35.0 g/dl RDW Standard Deviation 44.4 fL RDW Coefficient of Variation 12.8 % Platelet Count 160 K/uL Mean Platelet Volume 10.5 fL Sodium Level 139 mmol/L Potassium Level 3.3 mmol/L Chloride Level 111 mmol/L Carbon Dioxide Level 22 mmol/L Anion Gap 7.0 mmol/L Blood Urea Nitrogen 8 mg/dl Creatinine 0.72 mg/dl Est Creatinine Clear Calc Drug Dose 93.8 ml/min Estimated GFR () 112.4 Estimated GFR (Non- 97.0 BUN/Creatinine Ratio 10.8 Random Glucose 93 mg/dl Calcium Level 7.3 mg/dl Total Bilirubin 0.6 mg/dl Aspartate Amino Transf (AST/SGOT) 122 U/L Alanine Aminotransferase (ALT/SGPT) 120 U/L Alkaline Phosphatase 98 U/L Total Protein 5.7 gm/dl Albumin 2.6 gm/dl Globulin 3.1 gm/dl Albumin/Globulin Ratio 0.8 Assessment and Plan Mrs. He is a 51 year old female who presents to the ER with fever and chills 2 days post op from D&C and ablation. Sepsis - blood cultures positive for group B beta strep - likely from recent D&C - awaiting sensitivities - elevated WCC - dropped from 12.9 to 6.9 - urine cultures grew 3 organisms - influenza swabs negative - fluids stopped given pt is eating and drinking normally - consulted ID - thank you to Dr. Mata for recommendations - d/c zosyn and vanc and start 1g rocephin q24h as she will likely be given a PICC line and continue this abx for 2 weeks at home - pt consented for PICC line and will place tomorrow - TTE to rule out endocarditis - Thank you to Contract Implementation Analyst for consult: - benign pelvic exam, no cervical motion tenderness Headache - likely due sepsis/dehydration - ibuprofen 400mg q4h prn - Tylenol 800mg q4h prn Elevated LFTs - AST increased from 118 to 122 - ALT increased from 92 to 120 - likely caused by vomiting or Zosyn - will recheck tomorrow given discontinuing zosyn today Hypokalemia - 3.3 today, slowly resolving - recheck tomorrow - Mg 1.8 Hypothyroidism - Continue levothyroxine Seizure disorder - continue phenytoin Disposition: remains on med/surg Code: Full DVT Prophylaxis: not warranted Resident Physician Supervision Note: I interviewed and examined the patient. Discussed with Dr. Canales and agree with findings and plan as documented in the note. Any exceptions or clarifications are listed here: None Documented By: Omar Maloney feeling about the same discussed GBS bacteremia, ID consult discussed as well vitals noted nad breahting unlabored no pallor or icterus GBS bacteremia - change to rocephin, check echo, ID notes will need 2wks IV - PICC line discussed otherwise as above Resident Tracking Resident Involvement: Resident Care Provided Care Provided: Adult Hospital Medicine
--- NOTE | 2017-08-13 17:48 | Medical Consult ---
Consultation Date of Consultation: Aug 13, 2017. Attending Physician: Abimael Marin M.D. Reason for Consultation: Group B strep bacteremia History of Present Illness 51-year-old female in good health who is status post D and C for bleeding and polyps, who initially did well postoperatively, but 2 days ago developed onset of fever and shaking chills, with episode of nausea and vomiting, not associated with significant discharge or bleeding. Because of persistent symptoms, patient came to the emergency room and was admitted for further management. She has now been found to have positive blood cultures for group B strep. Initially treated with vancomycin and Zosyn, now changed to Unasyn. Urine with several different organisms. Mild dysuria but no other significant urinary complaints. CT scan of the abdomen, read by me, shows no obvious collection or other surgical site infection. Patient feeling better since admission with decrease in chills and fever. Past Medical/Surgical History Medical Problems: (1) Postoperative fever Status: Acute (2) Right hip pain Status: Acute (3) Right lower quadrant abdominal pain Status: Acute Medical Problems: (1) Acute cholecystitis (2) Sepsis Family History Noncontributory Social History Smoking Status: Unknown if Ever Smoked Smokeless Tobacco Use: No Alcohol Use: none Drug Use: none Marital Status: Housing Status: lives with family Occupation Status: retired Allergies Coded Allergies: No Known Allergies (Unverified , 08/11/17) Current Inpatient Medications Current Inpatient Medications Medications (Trade) Dose Ordered Sig/Dada Route Start Time Stop Time Status Last Admin Dose Admin Ioversol (Optiray 320) 125 ml UD PRN IV 08/12/17 00:45 08/16/17 00:44 Acetaminophen (Tylenol Tab) 650 mg Q4H PRN PO 08/12/17 03:45 09/11/17 03:44 08/13/17 06:53 650 MG Ondansetron HCl (Zofran Inj) 4 mg Q6H PRN IV 08/12/17 03:45 09/11/17 03:44 08/12/17 05:40 4 MG Levothyroxine Sodium (Synthroid Tab) 75 mcg DAILYBB PO 08/12/17 06:30 09/11/17 06:29 08/13/17 06:49 75 MCG Phenytoin Sodium (Dilantin Er Cap) 100 mg BID PO 08/12/17 08:00 09/11/17 08:59 08/13/17 08:08 100 MG Potassium Chloride/Sodium Chloride 1,000 ml @ 125 mls/hr Q8H IV 08/12/17 04:45 09/11/17 04:44 Future Hold 08/13/17 08:00 125 MLS/HR Oxycodone HCl (Roxicodone Immediate Rel Tab) 5 mg Q2H PRN PO 08/12/17 21:15 08/26/17 21:14 08/12/17 21:53 5 MG Ibuprofen (Advil Tab) 400 mg Q4 PRN PO 08/13/17 08:45 09/12/17 08:44 08/13/17 15:21 400 MG Ampicillin Sodium/ Sulbactam Sodium 3000 mg/Sodium Chloride 108 ml @ 200 mls/hr Q6H IV 08/13/17 18:00 08/27/17 17:59 Review of Systems all systems were reviewed and are negative except as per HPI Physical Exam Date Time Temp Pulse Resp B/P (MAP) Pulse Ox O2 Delivery O2 Flow Rate FiO2 08/13/17 16:00 Room Air 08/13/17 15:33 36.5 75 20 126/84 (98) 98 Room Air 08/13/17 12:09 36.8 08/13/17 09:50 36.8 08/13/17 08:09 38.1 95 18 131/80 (97) 96 Room Air 08/13/17 08:00 Room Air 08/13/17 08:00 37.6 08/13/17 06:50 38.4 08/13/17 01:01 112 18 127/82 (97) 98 Room Air 08/13/17 00:44 37.7 08/13/17 00:00 Room Air 08/12/17 23:30 39.1 08/12/17 20:00 Room Air General Appearance: WD/WN, no apparent distress Head: normocephalic, atraumatic Eyes: normal inspection, EOMI, sclerae normal ENT: normal ENT inspection, hearing grossly normal, pharynx normal Neck: supple, no adenopathy, thyroid normal, trachea midline Respiratory/Chest: chest non-tender, lungs clear, normal breath sounds, no respiratory distress Cardiovascular: regular rate, rhythm, no gallop, no murmur Abdomen/GI: normal bowel sounds, non tender, soft, no organomegaly Back: normal inspection, no CVA tenderness Extremities/Musculoskelatal: normal inspection, no calf tenderness, non-tender Neurologic/Psych: alert, normal mood/affect, oriented x 3 Skin: normal color, warm/dry, no rash Lymphatic: no adenopathy Laboratory Results RUN DATE: 08/13/17 [facility] LAB PAGE 1 RUN TIME: 943 Specimen Inquiry PATIENT: AKSHAT ELIZABETH LOC: JameySera # : [id number] AGE/SX: 51/F ROOM: [facility] REG : 08/12/[address]: Abimael Marin M.D : 1965 BED: 1 DIS : STATUS: ADM IN TLOC: SPEC #: [id number] RODDY: 08/12/170006 STATUS: ANDRIY REFreeman #: [id number] RECD: 08/12/170014 [facility] DR: Eros Solis PA- C SOURCE: BLOOD ENTR: 08/11/17-2326 [facility] DR: Cuauhtemoc Davidson M.D. [facility]: Adarsh Tam M.D. ORDERED: BLOOD CULTURE Procedure Result Verified Site BLD CULT Preliminary 08/13/17-0944 Organism 1 GROUP B BETA STREP SENS SENSITIVITY TO FOLLOW Phoned Positive Blood Culture Gram Stain Report to EUNICE CHEATHAM on 08/12/17 At 1419 By KASSIE. Results were verbalized back to KASSIE. Last 24 Hours Test 08/13/17 06:38 White Blood Count 6.95 K/uL Red Blood Count 3.36 M/uL Hemoglobin 11.1 g/dL Hematocrit 31.7 % Mean Corpuscular Volume 94.3 fL Mean Corpuscular Hemoglobin 33.0 pg Mean Corpuscular Hemoglobin Concent 35.0 g/dl RDW Standard Deviation 44.4 fL RDW Coefficient of Variation 12.8 % Platelet Count 160 K/uL Mean Platelet Volume 10.5 fL Sodium Level 139 mmol/L Potassium Level 3.3 mmol/L Chloride Level 111 mmol/L Carbon Dioxide Level 22 mmol/L Anion Gap 7.0 mmol/L Blood Urea Nitrogen 8 mg/dl Creatinine 0.72 mg/dl Est Creatinine Clear Calc Drug Dose 93.8 ml/min Estimated GFR () 112.4 Estimated GFR (Non- 97.0 BUN/Creatinine Ratio 10.8 Random Glucose 93 mg/dl Calcium Level 7.3 mg/dl Total Bilirubin 0.6 mg/dl Aspartate Amino Transf (AST/SGOT) 122 U/L Alanine Aminotransferase (ALT/SGPT) 120 U/L Alkaline Phosphatase 98 U/L Total Protein 5.7 gm/dl Albumin 2.6 gm/dl Globulin 3.1 gm/dl Albumin/Globulin Ratio 0.8 Patient Name: AKSHAT ELIZABETH Unit Number: [id number] Dictated: 08/12/17 1024 Transcribed: 08/12/17 1024 JRB Printed Date/Time: [~ rep prt dt]/[~ rep prt tm] [~ rep ct labl] - [~ rep ct ivnm] [facility] [place] [address] Dictated: 08/12/17 1024 Transcribed: 08/12/17 1024 JRB Printed Date/Time: [~ rep prt dt]/[~ rep prt tm] [~ rep ct labl] - [~ rep ct ivnm] ABD/PELVIS IV CONTRAST ONLY HISTORY: 51 years-old Female Post op fever. Had welding operator surg 2 days ago. Postoperative fever with history of recent gynecologic surgery COMPARISON: Abdominal radiographs of same day, pelvic ultrasound 04/13/2017 TECHNIQUE: Multiple axial CT images of the abdomen and pelvis were obtained following the intravenous administration of 120 mL Optiray 320. A dose lowering technique was used consistent with the principals of SAGAR. FINDINGS: Mild dependent bibasilar atelectasis. There is no pneumoperitoneum. Imaged inferior cardiac chambers are unremarkable. Prior cholecystectomy. The liver, pancreas and adrenal glands are within normal limits. Probable granuloma of the posterior spleen noted with a nonspecific 7 mm hyperattenuating focus of the spleen seen on image 121 of series 3 suggesting hemangioma. Kidneys, ureters and urinary bladder are unremarkable. There is a homogeneous cystic structure of the right adnexum, 5.2 x 6.4 x 5.6 cm. There is trace fluid within the endocervical canal. Enlarged fibroid uterus is noted. The abdominal aorta is normal in course and caliber with mild atherosclerotic plaquing. No bulky retroperitoneal adenopathy identified. There is no bowel obstruction or focal bowel wall thickening identified. Stool ball in the rectal vault noted. The appendix appears normal. Soft tissues are unremarkable. Bones appear intact. IMPRESSION: 1. 5.2 x 6.4 x 5.6 cm cystic lesion of the right adnexum. This could be further evaluated with dedicated pelvic ultrasound. 2. Fibroid uterus. 3. Normal appendix. 4. Prior cholecystectomy. The above report was generated using voice recognition software. It may contain grammatical, syntax or spelling errors. Electronically signed by: Binh Garcia M.D. 08/12/2017 10:33 AM Dictated Date/Time: 08/12/2017 10:24 AM The status of this report is Signed. Draft = Not yet reviewed or approved by Radiologist. Signed = Reviewed and approved by Radiologist. <AttendingPhy>Abimael Marin M.D.</AttendingPhy> <FamilyPhy>Mamta Staley M.D.</FamilyPhy> <PrimaryPhy>Cuauhtemoc Davidson M.D.</PrimaryPhy> < UnitNumber>[id number]</UnitNumber> <VisitNumber>[id number]</VisitNumber> < PatientName>AKSHAT ELIZABETH AILYN</PatientName> <DateOfBirth>1965</ DateOfBirth> <Location>C.4E</Location> <ServiceDate>08/11/17</ServiceDate> <MNE> ESINDI</MNE> <OrderingPhy>Eros Solis PA-C</OrderingPhy> <OrderingPhyMNE>f rep ord dr kirkpatrick</OrderingPhyMNE> <DictatingPhyMNE>f rep dict dr kirkpatrick</ DictatingPhyMNE> <CCListMNE>f rep ct mne</CCListMNE> <AdmittingPhyMNE>f pt admit dr kirkpatrick</AdmittingPhyMNE> <AttendingPhyMNE>f pt attend dr kirkpatrick</ AttendingPhyMNE> <ConsultingPhyMNE>f pt consult dr kirkpatrick</ConsultingPhyMNE> <FamilyPhyMNE>f pt fam dr kirkpatrick</FamilyPhyMNE> <OtherPhyMNE>f pt other dr kirkpatrick</OtherPhyMNE> < PrimaryPhyMNE>f pt prim care dr kirkpatrick</PrimaryPhyMNE> <ReferringPhyMNE>f pt referring dr kirkpatrick</ReferringPhyMNE> Assessment & Plan Group B streptococcal bacteremia likely related to recent gynecologic surgery , appears to be improving on IV antibiotics. Recommend changed to IV ceftriaxone which would allow easier outpatient therapy. Would obtain echocardiogram to ensure no obvious endocardial infection. Will likely require 2 weeks of IV antibiotics. Discussed with hospitalist service. Will follow.
[2017-08-13] MEDS ORDERED: AMPICILLIN/SULBACTAM SOD INJ 3,000 MG in SODIUM CHLORIDE 0.9% 100ML 100 ML IV SCH (18:00)
[2017-08-13] MEDS ORDERED: ACETAMINOPHEN 500 MG TAB PO PRN ×2 (18:30→18:45)
[2017-08-13] MEDS ORDERED: VANCOMYCIN TROUGH ONE (19:30)
[2017-08-13] MEDS: CEFTRIAXONE SOD INJ 1 GM in DEXTROSE 5% ADD-VANTAGE 50ML 50 ML IV SCH (20:05)
[2017-08-13] MEDS: IBUPROFEN 800 MG TAB PO PRN (20:09)
--- NOTE | 2017-08-13 22:52 | OB/GYN Progress Note ---
CHARRER Progress Note Date of Service Aug 13, 2017. Subjective conversation w/ patient, physical exam Ambulation: ambulating normally Voiding: no voiding problems Passing Gas: Yes Diet Tolerance: Regular Diet Review of Systems Constitutional: + fever, + chills Respiratory: No problem reported Cardiac: No problem reported Breast: No problem reported Abdomen: No problem reported Female : No problem reported Objective Vital Signs Date Time Temp Pulse Resp B/P (MAP) Pulse Ox O2 Delivery O2 Flow Rate FiO2 08/13/17 16:00 Room Air 08/13/17 15:33 36.5 75 20 126/84 (98) 98 Room Air 08/13/17 12:09 36.8 08/13/17 09:50 36.8 08/13/17 08:09 38.1 95 18 131/80 (97) 96 Room Air 08/13/17 08:00 Room Air 08/13/17 08:00 37.6 08/13/17 06:50 38.4 08/13/17 01:01 112 18 127/82 (97) 98 Room Air 08/13/17 00:44 37.7 08/13/17 00:00 Room Air 08/12/17 23:30 39.1 Physical Exam General Appearance: WELL-APPEARING, NO APPARENT DISTRESS Respiratory/Chest: no respiratory distress Cardiovascular: regular rate, rhythm Abdomen: non tender, soft Fundus: Non-Tender Extremities: normal inspection Laboratory Results Last 24 Hours Test 08/13/17 06:38 08/13/17 19:24 White Blood Count 6.95 K/uL Red Blood Count 3.36 M/uL Hemoglobin 11.1 g/dL Hematocrit 31.7 % Mean Corpuscular Volume 94.3 fL Mean Corpuscular Hemoglobin 33.0 pg Mean Corpuscular Hemoglobin Concent 35.0 g/dl RDW Standard Deviation 44.4 fL RDW Coefficient of Variation 12.8 % Platelet Count 160 K/uL Mean Platelet Volume 10.5 fL Sodium Level 139 mmol/L Potassium Level 3.3 mmol/L Chloride Level 111 mmol/L Carbon Dioxide Level 22 mmol/L Anion Gap 7.0 mmol/L Blood Urea Nitrogen 8 mg/dl Creatinine 0.72 mg/dl Est Creatinine Clear Calc Drug Dose 93.8 ml/min Estimated GFR () 112.4 Estimated GFR (Non- 97.0 BUN/Creatinine Ratio 10.8 Random Glucose 93 mg/dl Calcium Level 7.3 mg/dl Total Bilirubin 0.6 mg/dl Aspartate Amino Transf (AST/SGOT) 122 U/L Alanine Aminotransferase (ALT/SGPT) 120 U/L Alkaline Phosphatase 98 U/L Total Protein 5.7 gm/dl Albumin 2.6 gm/dl Globulin 3.1 gm/dl Albumin/Globulin Ratio 0.8 Vancomycin Level Trough 10.5 mcg/ml Assessment and Plan Post-Op Day Number: 4 Continue Routine Care: Patient is POD#4 s/p hysteroscopy, D&C, endometrial ablation for menorrhagia and endometrial polyps, performed by Dr Staley. She was discharged home after outpatient surgery and was doing well, but returned on 08/11 with fever/ chills. Urine culture is negative, blood culture shows Group B Strep. Patient's pelvic exam has been benign, with no uterine tenderness, vaginal bleeding, or discharge. Patient is being treated at current with ceftriaxone and is feeling better. IMAGING ADMINISTRATOR service will continue to follow. Appreciate input from primary and other consult services.
[2017-08-14] MEDS: IBUPROFEN 800 MG TAB PO PRN ×2 (05:59→17:28)
[2017-08-14] MEDS: LEVOTHYROXINE 75 MCG TAB PO SCH (05:59)
[2017-08-14 06:18] LABS: HEMATOCRIT 33.6 % (37-47); MEAN CELL VOLUME 94.1 fL (80-100); MEAN CORPUSCULAR HEMOGLOBIN 31.1 pg (25-34); MEAN PLATELET VOLUME 10.7 fL (7.4-10.4); PLATELET COUNT 179 K/uL (130-400); RED BLOOD COUNT 3.57 M/uL (4.2-5.4); WHITE BLOOD COUNT 6.24 K/uL (4.8-10.8)
[2017-08-14 07:08] LABS: BUN/CREATININE RATIO 11.7 (10-20); CALCIUM 8.1 mg/dl (8.5-10.1); CREATININE 0.59 mg/dl (0.60-1.20); POTASSIUM 3.4 mmol/L (3.5-5.1)
[2017-08-14 07:10] LABS: ALB/GLOB RATIO 0.8 (0.9-2)
[2017-08-14 08:11] VITALS: BP 132/85; PULSE 70; TEMP 36.7; O2SAT 97
--- NOTE | 2017-08-14 08:33 | OB/GYN Progress Note ---
COUNSELING DEPARTMENT CHAIR Progress Note Date of Service Aug 14, 2017. Subjective conversation w/ patient Ambulation: ambulating normally Voiding: no voiding problems Passing Gas: Yes Diet Tolerance: Regular Diet Review of Systems Constitutional: No problem reported Respiratory: No problem reported Cardiac: No problem reported Breast: No problem reported Abdomen: No problem reported Female : No problem reported Objective Vital Signs Date Time Temp Pulse Resp B/P (MAP) Pulse Ox O2 Delivery O2 Flow Rate FiO2 08/14/17 08:11 36.7 70 18 132/85 (101) 97 Room Air 08/14/17 00:00 Room Air 08/13/17 23:43 36.5 64 20 130/85 (100) 98 Room Air 08/13/17 20:00 Room Air 08/13/17 16:00 Room Air 08/13/17 15:33 36.5 75 20 126/84 (98) 98 Room Air 08/13/17 12:09 36.8 08/13/17 09:50 36.8 Physical Exam General Appearance: WELL-APPEARING, NO APPARENT DISTRESS Respiratory/Chest: no respiratory distress Laboratory Results Last 24 Hours Test 08/13/17 19:24 08/14/17 05:35 Vancomycin Level Trough 10.5 mcg/ml White Blood Count 6.24 K/uL Red Blood Count 3.57 M/uL Hemoglobin 11.1 g/dL Hematocrit 33.6 % Mean Corpuscular Volume 94.1 fL Mean Corpuscular Hemoglobin 31.1 pg Mean Corpuscular Hemoglobin Concent 33.0 g/dl RDW Standard Deviation 45.3 fL RDW Coefficient of Variation 13.1 % Platelet Count 179 K/uL Mean Platelet Volume 10.7 fL Sodium Level 142 mmol/L Potassium Level 3.4 mmol/L Chloride Level 111 mmol/L Carbon Dioxide Level 24 mmol/L Anion Gap 7.0 mmol/L Blood Urea Nitrogen 7 mg/dl Creatinine 0.59 mg/dl Est Creatinine Clear Calc Drug Dose 114.4 ml/min Estimated GFR () 123.0 Estimated GFR (Non- 106.1 BUN/Creatinine Ratio 11.7 Random Glucose 83 mg/dl Calcium Level 8.1 mg/dl Total Bilirubin 0.6 mg/dl Aspartate Amino Transf (AST/SGOT) 105 U/L Alanine Aminotransferase (ALT/SGPT) 120 U/L Alkaline Phosphatase 161 U/L Total Protein 6.3 gm/dl Albumin 2.8 gm/dl Globulin 3.5 gm/dl Albumin/Globulin Ratio 0.8 Assessment and Plan Continue Routine Care: Patient is POD#5 s/p hysteroscopy, D&C, endometrial ablation for menorrhagia and endometrial polyps, performed by Dr Staley. She was discharged home after outpatient surgery and was doing well, but returned on 08/11 with fever/ chills. Urine culture is negative, blood culture shows Group B Strep. Patient's pelvic exam has been benign, with no uterine tenderness, vaginal bleeding, or discharge. Patient is being treated at current with ceftriaxone and is feeling better. Appreciate input from primary and other consult services. At this time, as PRESENTATION MANAGER is not offering treatment decisions, will sign off of case. However, will continue to follow chart and patient's progress. If there are any questions, please do not hesitate to call on-call landscape account manager.
[2017-08-14] MEDS: PHENYTOIN SODIUM ER 100 MG CAP PO SCH ×2 (09:21→20:44)
[2017-08-14] MEDS ORDERED: POTASSIUM CHLORIDE 20 MEQ TABCR PO ONE (10:00)
--- NOTE | 2017-08-14 10:16 | ECHOCARDIOGRAM REPORT ---
*NOTICE TO RECEIVING [employer] This information is strictly Confidential and protected under [place] law. [place] law prohibits you from making any further disclosure of this information unless further disclosure is expressly permitted by the written consent of the person to whom it pertains or is authorized by law. A general authorization for the release of medical or other information is not sufficient for this purpose. Hospital accepts no responsibility if the information is made available to any other person, INCLUDING THE PATIENT. Interpretation Summary * Name: AKSHAT ELIZABETH Study Date: 08/14/2017 07:17 AM BP: 132/85 mmHg * Patient Location: [facility] HR: 75 * : 1965 (M/d/yyyy) Gender: Female Height: 60 in * Age: 51 yrs Ethnicity: CA Weight: 203 lb * Ordering Physician: Val Canales MD * Performed By: Elham Ortiz RDCS * * Reason For Study: Endocarditis, Group B Beta Strep Bacteremia * BSA: 1.9 m2 * -- Conclusions -- * 1. Normal LV size and wall thickness. * 2. Normal LV systolic function . LVEF 55-60%. No regional wall motion abnormalities. * 3. Normal RV size and function. * 4. Mild mitral regurgitation. * 5. Cannot exclude mitral valve vegetation. * 6. Normal estimated RA and PA pressures. Procedure Details * A complete two-dimensional transthoracic echocardiogram was performed (2D, M-mode, Doppler and color flow Doppler). Left Ventricle * The left ventricle is grossly normal size. * There is normal left ventricular wall thickness. * Ejection Fraction = 55-60%. * No regional wall motion abnormalities noted. Right Ventricle * The right ventricle is grossly normal size. * The right ventricular systolic function is normal as assessed by tricuspid annular plane systolic excursion (TAPSE) (normal >1.5 cm). Atria * The left atrial size is normal. * Right atrial size is normal. * No ASD detected; PFO is not assessed. Mitral Valve * The mitral valve is grossly normal. * A vegetation on the mitral valve cannot be excluded. * There is no mitral valve stenosis. * There is mild mitral regurgitation. Tricuspid Valve * The tricuspid valve is not well visualized, but is grossly normal. * Tricuspid stenosis is absent. * There is trace tricuspid regurgitation. Aortic Valve * The aortic valve opens well. * The aortic valve is trileaflet. * No hemodynamically significant valvular aortic stenosis. * There is no significant aortic regurgitation. Pulmonic Valve * The pulmonary valve is inadequately visualized, but the Doppler data is adequate for interpretation. * Pulmonic stenosis is absent. * Trace pulmonic valvular regurgitation. Great Vessels * The aortic root and proximal ascending aorta are normal sized. Pericardium/Pleural * There is no pericardial effusion. Great Vessels * Normal inferior vena cava size and collapsability with sniff indicates a normal right atrial pressure of 3 mmHg MMode 2D Measurements and Calculations IVSd 0.78 cm IVSs 1.2 cm LVIDd 4.3 cm LVIDs 2.6 cm LVPWd 0.88 cm LVPWs 1.2 cm IVS/LVPW 0.89 FS 39.6 % EDV(Teich) 81.4 ml ESV(Teich) 24.0 ml EF(Teich) 70.5 % EDV(cubed) 77.5 ml ESV(cubed) 17.1 ml EF(cubed) 78.0 % % IVS thick 57.7 % % LVPW thick 42.5 % LV mass(C)d 108.9 grams LV mass(C)dI 58.0 grams/m\S\2 LV mass(C)s 93.9 grams LV mass(C)sI 50.0 grams/m\S\2 SV(Teich) 57.4 ml SI(Teich) 30.6 ml/m\S\2 SV(cubed) 60.4 ml SI(cubed) 32.2 ml/m\S\2 Ao root diam 2.6 cm Ao root area 5.1 cm\S\2 ACS 1.8 cm LA dimension 4.1 cm asc Aorta Diam 2.9 cm LA/Ao 1.6 LVOT diam 1.9 cm LVOT area 2.8 cm\S\2 Doppler Measurements and Calculations MV dec time 0.18 sec LV V1 max PG 4.3 mmHg LV V1 max 103.6 cm/sec MR max christine 481.4 cm/sec MR max PG 92.7 mmHg MR PISA 0.48 cm\S\2 MR PISA radius 0.28 cm PA V2 max 141.8 cm/sec PA max PG 8.0 mmHg PI max christine 224.7 cm/sec PI max PG 20.2 mmHg PI dec slope 451.8 cm/sec\S\2 PI P1/2t 145.7 msec TR max christine 214.2 cm/sec
--- NOTE | 2017-08-14 13:46 | Hospitalist Progress Note ---
Hospitalist Progress Note Date of Service Aug 14, 2017. Subjective Pt evaluation today including: conversation w/ patient, physical exam, chart review, lab review, review of inpatient medication list Pain: None PO Intake: Tolerating PO diet Voiding: no voiding problems Patient reports feeling well today. She does report some nausea today but she is still tolerating a PO diet. She denies any urinary difficulties. She did report some shortness of breath last night but it resolved after sitting up in her chair this morning. She states that when laying down she will have some wheezing. The patient denies fevers, chills, sweats, chest pain, palpitations, claudication, cough, vomiting, abdominal pain, dysuria, hematuria, urinary retention, paralysis, weakness, numbness and tingling. Additional Comments: See HPI for pertinent positives and negatives. All other systems reviewed and negative. Objective Vital Signs Date Time Temp Pulse Resp B/P (MAP) Pulse Ox O2 Delivery O2 Flow Rate FiO2 08/14/17 09:30 Room Air 08/14/17 08:11 36.7 70 18 132/85 (101) 97 Room Air 08/14/17 00:00 Room Air 08/13/17 23:43 36.5 64 20 130/85 (100) 98 Room Air 08/13/17 20:00 Room Air 08/13/17 16:00 Room Air 08/13/17 15:33 36.5 75 20 126/84 (98) 98 Room Air Physical Exam Notes: General appearance: +Obese. Well-developed, well-nourished, no apparent distress Head: Normocephalic, atraumatic Eyes: Normal inspection, PERRL, EOMI ENT: Normal ENT inspection, hearing grossly normal, pharynx normal Neck: Supple, no JVD, trachea midline Respiratory/Chest: Lungs clear to auscultation, normal breath sounds, no respiratory distress Cardiovascular: Regular rate & rhythm, no gallop, no murmur Abdomen/GI: Normal bowel sounds, non-tender, soft Extremities/Musculoskeletal: Normal inspection, no calf tenderness, no pedal edema Neurological/Psych: Alert, normal mood/affect, oriented x 3 Skin: Normal color, warm/dry, no rash Laboratory Results Last 24 Hours Test 08/13/17 19:24 08/14/17 05:35 Vancomycin Level Trough 10.5 mcg/ml White Blood Count 6.24 K/uL Red Blood Count 3.57 M/uL Hemoglobin 11.1 g/dL Hematocrit 33.6 % Mean Corpuscular Volume 94.1 fL Mean Corpuscular Hemoglobin 31.1 pg Mean Corpuscular Hemoglobin Concent 33.0 g/dl RDW Standard Deviation 45.3 fL RDW Coefficient of Variation 13.1 % Platelet Count 179 K/uL Mean Platelet Volume 10.7 fL Sodium Level 142 mmol/L Potassium Level 3.4 mmol/L Chloride Level 111 mmol/L Carbon Dioxide Level 24 mmol/L Anion Gap 7.0 mmol/L Blood Urea Nitrogen 7 mg/dl Creatinine 0.59 mg/dl Est Creatinine Clear Calc Drug Dose 114.4 ml/min Estimated GFR () 123.0 Estimated GFR (Non- 106.1 BUN/Creatinine Ratio 11.7 Random Glucose 83 mg/dl Calcium Level 8.1 mg/dl Total Bilirubin 0.6 mg/dl Aspartate Amino Transf (AST/SGOT) 105 U/L Alanine Aminotransferase (ALT/SGPT) 120 U/L Alkaline Phosphatase 161 U/L Total Protein 6.3 gm/dl Albumin 2.8 gm/dl Globulin 3.5 gm/dl Albumin/Globulin Ratio 0.8 Assessment and Plan 51 y/o female with a history of HTN, hypothyroidism, and seizure disorder who presents with fevers and chills s/p D &C hysteroscopy and endometrial ablation. Sepsis, bacteremia--likely secondary to digital photographic printer procedure 08/09 - Admit to med/surg - Blood cultures positive for group B beta strep x 2 - Repeat blood cultures pending - ID consulted, appreciate recs: d/c zosyn and vanc and start Rocephin. Will need 2 weeks IV antibiotics. Recommend echo to r/o endocarditis. - PICC in place - Continue Rocephin 1 gm IV qd. Day # 2 of 14 - Leukocytosis resolved - Urine culture negative - Influenza swabs negative - Echo shows LVEF 55-60%. No WMA. Mitral valvae vegetation cannot be excluded. - Adjunct English Instructor consulted, appreciate recs: Pelvic exam benign Headache--improved - Likely due sepsis/dehydration - Continue ibuprofen 400mg PO q4h prn and Tylenol 800mg PO q4h prn Elevated LFTs--stable - AST improved to 105 - ALT unchanged, 120 - Alk phos elevated to 161 - Likely caused by vomiting or previous Zosyn Hypokalemia--improving - Potassium 3.4, given KCl 20 mEq PO x 1 - Mg 1.8 HTN -Continue Dyazide 37.5/25 mg PO qd Hypothyroidism - Continue levothyroxine 75 mcg PO qd Seizure disorder - Continue phenytoin 100 mg PO BID DVT prophylaxis -ALBERT garrett and SCDs Code Status -Level I, FULL RESUSCITATION STATUS
[2017-08-14 15:03] VITALS: BP 142/85; PULSE 87; TEMP 36.9; O2SAT 100
--- NOTE | 2017-08-14 15:06 | Infectious Disease Progress Nt ---
Progress Note Date of Service Aug 14, 2017. Subjective Pt evaluation today including: conversation w/ patient, conversation w/ family , physical exam, chart review, lab review, review of studies, conversation w/ human resources consultant, review of inpatient medication list Patient feeling better today. No fever since last night. Tolerating ceftriaxone. PICC line placed. Echocardiogram unrevealing. Liver enzymes appear to have stabilized.No other new complaints. All Other Systems: Reviewed and Negative Medications Current Inpatient Medications Medications (Trade) Dose Ordered Sig/Dada Route Start Time Stop Time Status Last Admin Dose Admin Ioversol (Optiray 320) 125 ml UD PRN IV 08/12/17 00:45 08/16/17 00:44 Ondansetron HCl (Zofran Inj) 4 mg Q6H PRN IV 08/12/17 03:45 09/11/17 03:44 08/12/17 05:40 4 MG Levothyroxine Sodium (Synthroid Tab) 75 mcg DAILYBB PO 08/12/17 06:30 09/11/17 06:29 08/14/17 05:59 75 MCG Phenytoin Sodium (Dilantin Er Cap) 100 mg BID PO 08/12/17 08:00 09/11/17 08:59 08/14/17 09:21 100 MG Potassium Chloride/Sodium Chloride 1,000 ml @ 125 mls/hr Q8H IV 08/12/17 04:45 09/11/17 04:44 Future Hold 08/13/17 08:00 125 MLS/HR Oxycodone HCl (Roxicodone Immediate Rel Tab) 5 mg Q2H PRN PO 08/12/17 21:15 08/26/17 21:14 08/12/17 21:53 5 MG Ceftriaxone Sodium 1 gm/ Dextrose 50 ml @ 100 mls/hr Q24H IV 08/13/17 19:00 08/27/17 18:59 08/13/17 20:05 100 MLS/HR Ibuprofen (Motrin Tab) 800 mg TID PRN PO 08/13/17 18:30 09/12/17 08:44 08/14/17 05:59 800 MG Acetaminophen (Tylenol Tab) 1,000 mg Q6H PRN PO 08/13/17 18:45 09/12/17 18:29 Objective Vital Signs Date Time Temp Pulse Resp B/P (MAP) Pulse Ox O2 Delivery O2 Flow Rate FiO2 08/14/17 15:03 36.9 87 18 142/85 (104) 100 Room Air 08/14/17 09:30 Room Air 08/14/17 08:11 36.7 70 18 132/85 (101) 97 Room Air 08/14/17 00:00 Room Air 08/13/17 23:43 36.5 64 20 130/85 (100) 98 Room Air 08/13/17 20:00 Room Air 08/13/17 16:00 Room Air 08/13/17 15:33 36.5 75 20 126/84 (98) 98 Room Air Physical Exam General Appearance: WD/WN, no apparent distress Eyes: normal inspection, EOMI, sclerae normal ENT: normal ENT inspection, pharynx normal Neck: supple, no adenopathy, thyroid normal, trachea midline Respiratory/Chest: chest non-tender, lungs clear, normal breath sounds, no respiratory distress Cardiovascular: regular rate, rhythm, no gallop, no murmur Abdomen: normal bowel sounds, non tender, soft, no organomegaly Extremities: non-tender, no calf tenderness Neurologic/Psychiatric: alert, normal mood/affect, oriented x 3 Skin: normal color, warm/dry, no rash Lymphatic: no adenopathy Laboratory Results Last 24 Hours Test 08/13/17 19:24 08/14/17 05:35 Vancomycin Level Trough 10.5 mcg/ml White Blood Count 6.24 K/uL Red Blood Count 3.57 M/uL Hemoglobin 11.1 g/dL Hematocrit 33.6 % Mean Corpuscular Volume 94.1 fL Mean Corpuscular Hemoglobin 31.1 pg Mean Corpuscular Hemoglobin Concent 33.0 g/dl RDW Standard Deviation 45.3 fL RDW Coefficient of Variation 13.1 % Platelet Count 179 K/uL Mean Platelet Volume 10.7 fL Sodium Level 142 mmol/L Potassium Level 3.4 mmol/L Chloride Level 111 mmol/L Carbon Dioxide Level 24 mmol/L Anion Gap 7.0 mmol/L Blood Urea Nitrogen 7 mg/dl Creatinine 0.59 mg/dl Est Creatinine Clear Calc Drug Dose 114.4 ml/min Estimated GFR () 123.0 Estimated GFR (Non- 106.1 BUN/Creatinine Ratio 11.7 Random Glucose 83 mg/dl Calcium Level 8.1 mg/dl Total Bilirubin 0.6 mg/dl Aspartate Amino Transf (AST/SGOT) 105 U/L Alanine Aminotransferase (ALT/SGPT) 120 U/L Alkaline Phosphatase 161 U/L Total Protein 6.3 gm/dl Albumin 2.8 gm/dl Globulin 3.5 gm/dl Albumin/Globulin Ratio 0.8 Assessment and Plan Group B streptococcal bacteremia likely related to recent gynecologic surgery , appears to be improving on IV antibiotics. Recommend changed to IV ceftriaxone which would allow easier outpatient therapy. Would obtain echocardiogram to ensure no obvious endocardial infection. Will likely require 2 weeks of IV antibiotics. Discussed with hospitalist service. Will follow.
[2017-08-14 16:00] VITALS: O2SAT 100
[2017-08-14 16:02] VITALS: TEMP 37.4
[2017-08-14] MEDS: CEFTRIAXONE SOD INJ 1 GM in DEXTROSE 5% ADD-VANTAGE 50ML 50 ML IV SCH (16:53)
[2017-08-15 00:15] VITALS: BP 114/76; PULSE 81; TEMP 36.7; O2SAT 97
[2017-08-15 06:03] LABS: MEAN CORPUSCULAR HEMOGLOBIN 31.7 pg (25-34); MEAN CORPUSCULAR HGB CONC 34.1 g/dl (32-36); MEAN PLATELET VOLUME 10.3 fL (7.4-10.4); PLATELET COUNT 183 K/uL (130-400); RED BLOOD COUNT 3.44 M/uL (4.2-5.4); WHITE BLOOD COUNT 7.68 K/uL (4.8-10.8)
[2017-08-15] MEDS: LEVOTHYROXINE 75 MCG TAB PO SCH (06:37)
[2017-08-15 06:45] LABS: BUN/CREATININE RATIO 10.3 (10-20); CALCIUM 8.2 mg/dl (8.5-10.1); CREATININE 0.58 mg/dl (0.60-1.20); POTASSIUM 3.4 mmol/L (3.5-5.1)
[2017-08-15 07:36] VITALS: BP 124/84; PULSE 80; TEMP 36.9; O2SAT 98
[2017-08-15] MEDS: PHENYTOIN SODIUM ER 100 MG CAP PO SCH (07:43)
[2017-08-15] MEDS: IBUPROFEN 800 MG TAB PO PRN (07:44)
[2017-08-15 08:00] VITALS: O2SAT 98
[2017-08-15] MEDS ORDERED: POTASSIUM CHLORIDE 20 MEQ TABCR PO ONE (10:00)
[2017-08-15] MEDS ORDERED: CEFT1INJ57 IV (11:03)
--- NOTE | 2017-08-15 11:10 | Discharge Instructions ---
Discharge Instructions Date of Service Aug 15, 2017. Admission Reason for Admission: Sepsis Discharge Discharge Diagnosis / Problem: Sepsis, bacteremia Discharge Goals Goal(s): Decrease discomfort, Diagnostic testing, Therapeutic intervention Activity Recommendations Activity Limitations: resume your previous activity (as tolerated) . Instructions / Follow-Up Instructions / Follow-Up You were admitted to the hospital after presenting with fevers, chills, and vomiting following your recent gynecological procedure. You were diagnosed with sepsis, or a severe infection, which was treated with IV antibiotics. You were found to have bacteria in your blood as well. Infectious disease was consulted and recommended a 14 day course of IV antibiotics. As you are now medically stable, you will be discharged to home with the PICC line in place to receive the IV antibiotic at home. Medications: *Ceftriaxone (Rocephin) 1 gm IV every 24 hours x 11 more days. You received the first 3 days of the 14 day course while inpatient. The prescription for the antibiotic has been provided to the home health agency who will be administering it to you. *Continue your home medications as prescribed. Follow up: *You will be scheduled to follow up with your primary care provider as well as Dr. Mata from infectious disease in the next week. *A script for a repeat liver profile blood test has been provided. Please have lab drawn 2 days prior to primary care follow up. Please seek medical attention if you experience fevers, chills, sweats, dizziness/lightheadedness, loss of consciousness, chest pain, shortness of breath, nausea, vomiting, numbness, or tingling. Current Hospital Diet Patient's current hospital diet: Regular Diet Discharge Diet Recommended Diet: Regular Diet Pending Studies Studies pending at discharge: yes List of pending studies: Repeat blood cultures Medical Emergencies . Who to Call and When: Medical Emergencies: If at any time you feel your situation is an emergency, please call 911 immediately. . Non-Emergent Contact Non-Emergency issues call your: Primary Care Provider, Specialist (Infectious disease) . Past History Medical & Surgical History: (1) Bacteremia (2) Sepsis . "Provider Documentation" section prepared by Deborah Coleman. . VTE Core Measure Inpt VTE Proph given/why not?: Trenton Goins, ANAT's
--- NOTE | 2017-08-15 11:16 | Discharge Summary ---
Discharge Summary Date of Service Aug 15, 2017. Discharge Summary Admission Date: Aug 12, 2017 at 03:39 Discharge Date: Aug 15, 2017 Discharge Disposition: Home with services Principal Diagnosis: Sepsis, bacteremia Immunizations: Have You Had Influenza Vaccine: Unknown History of Tetanus Vaccine?: Unknown History of Pneumococcal: Unknown History of Hepatitis B Vaccine: Unknown Consultations: Life Sciences Manager--Dr. Coles, Dr. Parish Infectious disease--Dr. Mata Medication Reconciliation New Medications: Ceftriaxone Sod (Rocephin) 1 Gm Inj 1 GM IV Q24H for 11 Days, #11 DOSE Continued Medications: Levothyroxine Sodium (Synthroid) 75 Mcg Tab 75 MCG PO QAM Phenytoin Sodium (Dilantin) 100 Mg Cap 100 MG PO BID Triamterene/Hctz (Dyazide 37.5MG/25MG) Cap 1 TAB PO QAM Discharge Exam Patient reports feeling well. She denies any fevers or chills today as well as nausea. She was able to have a good appetite today. The patient denies fevers , chills, sweats, chest pain, palpitations, claudication, cough, wheezing, shortness of breath, nausea, vomiting, abdominal pain, dysuria, hematuria, urinary retention, paralysis, weakness, numbness and tingling. Review of Systems: Constitutional: No fever, No chills, No sweats Eyes: No worsening of vision, No eye pain, No diplopia ENT: No hearing loss, No sore throat, No trouble swallowing Respiratory: No cough, No wheezing, No shortness of breath Cardiovascular: No chest pain, No claudication, No palpitations Abdomen: No pain, No nausea, No vomiting Musculoskeletal: No joint pain, No muscle pain, No calf pain Genitourinary - Female: No dysuria, No urinary retention, No hematuria Neurologic: No paralysis, No weakness, No numbness/tingling Integumentary: No rash, No itch, No color change Physical Exam: General Appearance: WD/WN, no apparent distress, + obese Eyes: normal inspection, PERRL, EOMI ENT: normal ENT inspection, hearing grossly normal, pharynx normal Neck: supple, no JVD, trachea midline Respiratory/Chest: lungs clear, normal breath sounds, no respiratory distress Cardiovascular: regular rate, rhythm, no gallop, no murmur Abdomen / GI: normal bowel sounds, non tender, soft Extremities: normal inspection, no calf tenderness, no pedal edema, + pertinent finding (PICC LUE) Neurologic/Psychiatric: alert, normal mood/affect, oriented x 3 Skin: normal color, warm/dry, no rash Hospital Course 51 y/o female with a history of HTN, hypothyroidism, and seizure disorder who presents with fevers and chills s/p D &C hysteroscopy and endometrial ablation. Sepsis, bacteremia--likely secondary to program analyst procedure 08/09 - Admit to med/surg - Blood cultures positive for group B beta strep x 2 - Repeat blood cultures pending - ID consulted, appreciate recs: d/c zosyn and vanc and start Rocephin. Will need 2 weeks IV antibiotics. Recommend echo to r/o endocarditis. - PICC in place - Continue Rocephin 1 gm IV qd. Day # 3 of 14 - Leukocytosis resolved - Urine culture negative - Influenza swabs negative - Echo shows LVEF 55-60%. No WMA. Mitral valvae vegetation cannot be excluded. - Life Sciences Manager consulted, appreciate recs: Pelvic exam benign Headache--resolved - Likely due sepsis/dehydration - Continue ibuprofen 400mg PO q4h prn and Tylenol 800mg PO q4h prn Elevated LFTs--stable - AST improved to 105 - ALT unchanged, 120 - Alk phos elevated to 161 - Likely caused by vomiting or previous Zosyn - F/u with PCP as outpatient Hypokalemia--stable - Potassium 3.4, given KCl 20 mEq PO x 1 - Mg 1.8 HTN -Continue Dyazide 37.5/25 mg PO qd Hypothyroidism - Continue levothyroxine 75 mcg PO qd Seizure disorder - Continue phenytoin 100 mg PO BID DVT prophylaxis -ALBERT Greene Code Status -Level I, FULL RESUSCITATION STATUS Total Time Spent: Greater than 30 minutes This includes examination of the patient, discharge planning, medication reconciliation, and communication with other providers. Discharge Instructions Please refer to the electronic Patient Visit Report (Discharge Instructions) for additional information. Follow-Up F/u with PCP and infectious disease in 1 week Additional Copies To Cuauhtemoc Davidson M.D.
--- NOTE | 2017-08-15 12:23 | Infectious Disease Progress Nt ---
Progress Note Date of Service Aug 15, 2017. Subjective Pt evaluation today including: conversation w/ patient, conversation w/ family , physical exam, chart review, lab review, review of studies, conversation w/ software security consultant, review of inpatient medication list Patient offering no new complaints today. Has been afebrile for more than 24 hours. Follow-up blood cultures negative so far. Able to eat full breakfast this morning. All Other Systems: Reviewed and Negative Medications Current Inpatient Medications Medications (Trade) Dose Ordered Sig/Dada Route Start Time Stop Time Status Last Admin Dose Admin Ioversol (Optiray 320) 125 ml UD PRN IV 08/12/17 00:45 08/16/17 00:44 Ondansetron HCl (Zofran Inj) 4 mg Q6H PRN IV 08/12/17 03:45 09/11/17 03:44 08/12/17 05:40 4 MG Levothyroxine Sodium (Synthroid Tab) 75 mcg DAILYBB PO 08/12/17 06:30 09/11/17 06:29 08/15/17 06:37 75 MCG Phenytoin Sodium (Dilantin Er Cap) 100 mg BID PO 08/12/17 08:00 09/11/17 08:59 08/15/17 07:43 100 MG Potassium Chloride/Sodium Chloride 1,000 ml @ 125 mls/hr Q8H IV 08/12/17 04:45 09/11/17 04:44 Future Hold 08/13/17 08:00 125 MLS/HR Oxycodone HCl (Roxicodone Immediate Rel Tab) 5 mg Q2H PRN PO 08/12/17 21:15 08/26/17 21:14 08/12/17 21:53 5 MG Ibuprofen (Motrin Tab) 800 mg TID PRN PO 08/13/17 18:30 09/12/17 08:44 08/15/17 07:44 800 MG Acetaminophen (Tylenol Tab) 1,000 mg Q6H PRN PO 08/13/17 18:45 09/12/17 18:29 Heparin Sodium (Porcine) (Heparin 10 Unit/ ml 5 ml Flush) 5 ml PRN PRN FLUSH 08/15/17 07:15 09/14/17 07:14 Ceftriaxone Sodium 1 gm/ Dextrose 50 ml @ 100 mls/hr Q24H IV 08/15/17 16:00 08/27/17 18:59 Objective Vital Signs Date Time Temp Pulse Resp B/P (MAP) Pulse Ox O2 Delivery O2 Flow Rate FiO2 08/15/17 08:00 98 Room Air 08/15/17 07:36 36.9 80 18 124/84 (97) 98 Room Air 08/15/17 00:15 36.7 81 20 114/76 (89) 97 Room Air 08/15/17 00:10 Room Air 08/14/17 16:02 37.4 08/14/17 16:00 100 Room Air 08/14/17 15:03 36.9 87 18 142/85 (104) 100 Room Air Physical Exam General Appearance: WD/WN, no apparent distress Eyes: normal inspection, EOMI, sclerae normal ENT: normal ENT inspection, pharynx normal Neck: supple, no adenopathy, thyroid normal, trachea midline Respiratory/Chest: chest non-tender, lungs clear, normal breath sounds, no respiratory distress Cardiovascular: regular rate, rhythm, no gallop, no murmur Abdomen: normal bowel sounds, non tender, soft, no organomegaly Extremities: non-tender, no calf tenderness Neurologic/Psychiatric: alert, oriented x 3 Skin: normal color, warm/dry, no rash Lymphatic: no adenopathy Laboratory Results Last 24 Hours Test 08/15/17 05:41 White Blood Count 7.68 K/uL Red Blood Count 3.44 M/uL Hemoglobin 10.9 g/dL Hematocrit 32.0 % Mean Corpuscular Volume 93.0 fL Mean Corpuscular Hemoglobin 31.7 pg Mean Corpuscular Hemoglobin Concent 34.1 g/dl RDW Standard Deviation 43.7 fL RDW Coefficient of Variation 13.0 % Platelet Count 183 K/uL Mean Platelet Volume 10.3 fL Sodium Level 143 mmol/L Potassium Level 3.4 mmol/L Chloride Level 110 mmol/L Carbon Dioxide Level 25 mmol/L Anion Gap 8.0 mmol/L Blood Urea Nitrogen 6 mg/dl Creatinine 0.58 mg/dl Est Creatinine Clear Calc Drug Dose 116.4 ml/min Estimated GFR () 123.7 Estimated GFR (Non- 106.7 BUN/Creatinine Ratio 10.3 Random Glucose 90 mg/dl Calcium Level 8.2 mg/dl Assessment and Plan Group B streptococcal bacteremia likely related to recent gynecologic surgery , appears to be improving on IV antibiotics. Recommend changed to IV ceftriaxone which would allow easier outpatient therapy. Patient to complete 14 days total of IV ceftriaxone. Will follow up as outpatient prior to discontinuation of IV antibiotics.
[2017-08-15 13:37] VITALS: BP 124/84; PULSE 80; TEMP 36.9; O2SAT 98
[2017-08-15] MEDS ORDERED: CEFTRIAXONE SOD INJ 1 GM in DEXTROSE 5% ADD-VANTAGE 50ML 50 ML IV SCH (16:00)
== END 2017-08-15 17:35 | disposition home health service (06) | DRG 872 ==
LOC: C.EDB 22:14 → C.4E 08-12 03:39 → ENRESERV 08-12 03:47
PROVIDERS: ADMIT Hospitalist; ATTEND Internal Medicine Sports Medicine
PROC: 05H Upper Veins, Insertion (ICD-10-PCS; principal; 2017-08-14)
DX: A41.9 Sepsis, unspecified organism (principal); E03.9 Hypothyroidism, unspecified; G40.909 Epilepsy, unspecified, not intractable, without status epilepticus; R94.5 Abnormal results of liver function studies; E87.6 Hypokalemia; R50.82 Postprocedural fever; B95.5 Unspecified streptococcus as the cause of diseases classified elsewhere; R51 Headache

== ENCOUNTER → 2017-08-22 | Outpatient (CLI) | payer BC ==
[~2017-08-22] MED LIST changes: +CEFT1INJ57 IV
[2017-08-22 17:29] LABS: HEMATOCRIT 37.9 % (37-47); MEAN CORPUSCULAR HEMOGLOBIN 31.3 pg (25-34); MEAN PLATELET VOLUME 10.1 fL (7.4-10.4); PLATELET COUNT 356 K/uL (130-400); RED BLOOD COUNT 3.99 M/uL (4.2-5.4)
[2017-08-22 17:39] LABS: ALT/SGPT 45 U/L (12-78); BLOOD UREA NITROGEN 9 mg/dl (7-18); BUN/CREATININE RATIO 16.1 (10-20); C-REACTIVE PROTEIN 0.98 mg/dl (0-0.29); CALCIUM 9.1 mg/dl (8.5-10.1); CARBON DIOXIDE 28 mmol/L (21-32); CHLORIDE 100 mmol/L (98-107); CREATININE 0.58 mg/dl (0.60-1.20); GLUCOSE 73 mg/dl (70-99); POTASSIUM 3.1 mmol/L (3.5-5.1); SODIUM 133 mmol/L (136-145)
[2017-08-22 17:42] LABS: ALB/GLOB RATIO 0.8 (0.9-2); ALKALINE PHOSPHATASE 173 U/L (45-117); AST/SGOT 24 U/L (15-37)
== END | disposition home or self-care (01) ==
LOC: C.LABSPEC 12:48
PROVIDERS: ATTEND Internal Medicine Infectious Disease
DX: R78.81 Bacteremia (principal)